=== PATIENT | male | born 1980 | race Two or more races ===

== ENCOUNTER 2020-12-17 14:52 | Outpatient (REF) | payer MEDICAID, SELFPAY ==
--- NOTE | ~2020-12-17 | XR_ITS ---
EXAMINATION: XR LUMBOSACRAL SPINE WITH OBLIQUES CLINICAL INFORMATION: Pain COMPARISON: 11/10/2016 TECHNIQUE: AP, both oblique, and lateral views of the lumbar spine. Lateral view of the lumbosacral junction. FINDINGS: No fracture or subluxation. Vertebral body height and alignment is maintained. Mild disc space narrowing of L5-S1. Small multilevel endplate osteophytes with mild facet arthropathy. The sacroiliac joints are symmetric. The sacrum is intact. Nonobstructive bowel gas pattern. XR/XR lumbar spine 4V min IMPRESSION: Mild degenerative changes of the lumbar spine.
--- NOTE | ~2020-12-17 | XR_ITS ---
EXAMINATION: XR ANKLE, RIGHT XR ANKLE, LEFT CLINICAL INFORMATION: Pain COMPARISON: 11/10/2016 TECHNIQUE: 3 views of each ankle. FINDINGS: Right ankle: No fracture or subluxation. Ankle mortise is congruent. Mild degenerative change along the ankle mortise with osteophytes noted. Diffuse soft tissue swelling. No ankle joint effusion. Small plantar heel spur. Mild degenerative change of the midfoot with osteophyte formation. Left ankle: No fracture or dislocation. The ankle mortise is congruent. Mild degenerative change along the mortise with osteophyte formation. Corticated ossification at the tip of the medial malleolus. Diffuse soft tissue swelling. No ankle joint effusion. Small plantar heel spur. Mild degenerative change of the midfoot with osteophytes noted. XR/XR ankle LT min 3V IMPRESSION: Mild degenerative changes throughout both ankles. Soft tissue swelling.
--- NOTE | ~2020-12-17 | XR_ITS ---
EXAMINATION: XR ANKLE, RIGHT XR ANKLE, LEFT CLINICAL INFORMATION: Pain COMPARISON: 11/10/2016 TECHNIQUE: 3 views of each ankle. FINDINGS: Right ankle: No fracture or subluxation. Ankle mortise is congruent. Mild degenerative change along the ankle mortise with osteophytes noted. Diffuse soft tissue swelling. No ankle joint effusion. Small plantar heel spur. Mild degenerative change of the midfoot with osteophyte formation. Left ankle: No fracture or dislocation. The ankle mortise is congruent. Mild degenerative change along the mortise with osteophyte formation. Corticated ossification at the tip of the medial malleolus. Diffuse soft tissue swelling. No ankle joint effusion. Small plantar heel spur. Mild degenerative change of the midfoot with osteophytes noted. XR/XR ankle RT min 3V IMPRESSION: Mild degenerative changes throughout both ankles. Soft tissue swelling.
--- NOTE | ~2020-12-17 | XR_ITS ---
EXAMINATION: XR KNEE, LEFT XR KNEE, RIGHT CLINICAL INFORMATION: Knee pain COMPARISON: 11/10/2016 TECHNIQUE: 4 views of each knee FINDINGS: Left knee: No fracture or subluxation. Compartmental joint spaces are maintained. No joint effusion. Diffuse soft tissue swelling. Right knee: No fracture or subluxation. Small tricompartmental marginal osteophytes. No joint effusion. Diffuse soft tissue swelling. XR/XR knee LT 4V IMPRESSION: Soft tissue swelling throughout both knees. Mild tricompartmental degenerative change of the right knee.
--- NOTE | ~2020-12-17 | XR_ITS ---
EXAMINATION: XR KNEE, LEFT XR KNEE, RIGHT CLINICAL INFORMATION: Knee pain COMPARISON: 11/10/2016 TECHNIQUE: 4 views of each knee FINDINGS: Left knee: No fracture or subluxation. Compartmental joint spaces are maintained. No joint effusion. Diffuse soft tissue swelling. Right knee: No fracture or subluxation. Small tricompartmental marginal osteophytes. No joint effusion. Diffuse soft tissue swelling. XR/XR knee RT 4V IMPRESSION: Soft tissue swelling throughout both knees. Mild tricompartmental degenerative change of the right knee.
== END 2020-12-17 14:53 | disposition home or self-care (01) ==
LOC: HO.XRAY 14:52
PROVIDERS: PCP Internal Medicine Geriatric Medicine; Visit Provider Internal Medicine Geriatric Medicine
DX: M25.561 Pain in right knee (principal); M25.562 Pain in left knee; M25.571 Pain in right ankle and joints of right foot; M25.572 Pain in left ankle and joints of left foot; M54.50 Low back pain, unspecified
CPT/HCPCS: 72110; 73564; 73610

== ENCOUNTER 2022-03-18 11:21 | Emergency (ER) | payer MEDICAID, SELFPAY ==
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
[2022-03-18 11:22] VITALS: BP 158/92; PULSE 86; RESP 18; TEMP 35.6; O2SAT 99; BMI 46.8
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
--- NOTE | 2022-03-18 11:25 | ECG_ITS ---
Test Reason : CHEST PAIN Blood Pressure : / mmHG Vent. Rate : 102 BPM Atrial Rate : 000 BPM P-R Int : 000 ms QRS Dur : 092 ms QT Int : 338 ms P-R-T Axes : 000 007 -75 degrees QTc Int : 440 ms Atrial fibrillation with rapid ventricular response Incomplete right bundle branch block Inferior infarct , age undetermined Cannot rule out Anterior infarct , age undetermined Abnormal ECG No previous ECGs available Referred By: Lindsay Solis Electronically Signed By:DANIEL WOODRUFF
[2022-03-18 11:58] LABS: MANUAL DIFF FLAG NO
[2022-03-18 12:00] VITALS: RESP 18
[2022-03-18 12:00] LABS: Basophils Absolute Auto 0.1 X10*3/uL (0.0-0.2); Basophils Percent Auto 0.5 % (0-2); Eosinophils Absolute Auto 0.1 X10*3/uL (0.0-0.4); Eosinophils Percent Auto 1.1 % (0-4); Hematocrit 44.4 % (42.0-52.0); Imm Gran Abs Auto 0.04 X10*3/uL (0.00-0.03); Imm Gran Pct Auto 0.4 % (0.0-0.4); Lymphocytes Absolute Auto 2.1 X10*3/uL (1.2-4.9); Mean Corpuscular HGB Conc 31.5 g/dl (31.0-36.0); Mean Corpuscular Volume 82.4 fL (80.0-98.0); Monocytes Absolute Auto 0.8 X10*3/uL (0.1-1.2); Neutrophils Absolute Auto 6.5 x10*3/uL (2.0-8.3); Platelet Count 190 X10*3/uL (160-400); Red Blood Count 5.39 X10*6/uL (4.60-5.80); Red Cell Distribution Width 16.7 % (11.0-16.0); White Blood Count 9.6 X10*3/uL (4.8-10.8)
[2022-03-18 12:16] LABS: Alanine Aminotransferase 14 U/L (0-40); Albumin Level 3.5 g/dL (3.5-5.0); Alkaline Phosphatase 86 U/L (39-117); Anion Gap 14 (12-20); Aspartate Amino Transferase 22 U/L (5-37); Bilirubin Total 0.9 mg/dL (0.0-1.0); Blood Urea Nitrogen 11 mg/dL (9-16); Calcium 9.2 mg/dL (8.4-10.2); Carbon Dioxide 29 mmol/L (22-29); Chloride 98 mmol/L (96-108); Creatinine Clr Calc Pharmacy 188.1; Estimated Glomerular Filt Rate > 60; Glucose Random 193 mg/dL (60-115); Magnesium 1.9 mg/dL (1.6-2.6); Potassium 4.1 mmol/L (3.3-5.1); Sodium 137 mmol/L (135-145); Total Protein 8.1 g/dL (6.5-8.0)
[2022-03-18 12:21] LABS: B Type Natriuretic Peptide 139 pg/mL (<100)
[2022-03-18 12:23] LABS: Troponin-I High Sensitivity 8.1 ng/L (<3.5-35.0)
[2022-03-18 12:39] LABS: Influenza A PCR NEGATIVE (Negative); Influenza B PCR NEGATIVE (Negative); Resp Syncy Virus RNA Qual PCR NEGATIVE (Negative); SARS COV2 PCR INHOUSE NEGATIVE (Negative)
[2022-03-18 14:00] VITALS: PULSE 75; RESP 16; O2SAT 95
[2022-03-18 14:16] VITALS: BP 120/66; BP 121/61; PULSE 65; PULSE 69
[2022-03-18 14:17] VITALS: BP 115/53; PULSE 69
[2022-03-18 15:01] LABS: Troponin-I High Sensitivity 8.2 ng/L (<3.5-35.0)
[2022-03-18 16:00] VITALS: PULSE 72; RESP 18; O2SAT 95
== END 2022-03-18 17:15 | disposition home or self-care (01) ==
PROVIDERS: Physician Assistant Medical; Emergency Provider Student in an Organized Health Care Education/Training Program; PCP Internal Medicine Geriatric Medicine
DX: R07.89 Other chest pain (principal); R60.0 Localized edema; Z95.810 Presence of automatic (implantable) cardiac defibrillator; Z20.822 Contact with and (suspected) exposure to COVID-19; Z20.828 Contact with and (suspected) exposure to other viral communicable diseases
CPT/HCPCS: 0241U; 36415; 71046; 80053; 83735; 83880; 84484; 85025; 93005; 99283; 99285

== ENCOUNTER 2023-02-02 16:35 | Emergency (ER) | payer MEDICAID, SELFPAY ==
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
[2023-02-02 17:56] VITALS: BP 143/83; PULSE 102; RESP 20; TEMP 36.5; O2SAT 97; BMI 46.2
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
--- NOTE | 2023-02-02 19:22 | MHC.EDTECH ---
Called patient in at 192 patient then asked how long of a wait. I told the patient I was not sure a estimated time. Patient then stated he had kids at home and could not wait and said he was going to follow up with his primary care doctor to get the results.
== END 2023-02-02 20:51 | disposition left against medical advice (07) ==
PROVIDERS: Emergency Provider Emergency Medicine; PCP Internal Medicine Geriatric Medicine
DX: S39.92XA Unspecified injury of lower back, initial encounter (principal); S09.90XA Unspecified injury of head, initial encounter; M54.2 Cervicalgia; R51.9 Headache, unspecified; M54.6 Pain in thoracic spine; V43.52XA Car driver injured in collision with other type car in traffic accident, initial encounter; Y93.9 Activity, unspecified; Y92.410 Unspecified street and highway as the place of occurrence of the external cause; Y99.9 Unspecified external cause status
CPT/HCPCS: 70450; 72072; 72125; 99281; 99284

== ENCOUNTER 2023-02-06 23:59 | Outpatient (BNV) | payer MEDICAID, SELFPAY | END 2023-02-07 23:59 | PROVIDERS: PCP Internal Medicine Geriatric Medicine; Visit Provider Internal Medicine | DX: I42.9 Cardiomyopathy, unspecified (principal); I48.20 Chronic atrial fibrillation, unspecified; I10 Essential (primary) hypertension; E78.5 Hyperlipidemia, unspecified | CPT/HCPCS: 99223 ==

== ENCOUNTER 2023-03-20 15:16 | Outpatient (REF) | payer MEDICAID, SELFPAY ==
--- NOTE | ~2023-03-20 | XR_ITS ---
EXAMINATION: XR ANKLE, LEFT CLINICAL INFORMATION: Left ankle pain lateral malleolus plus edema following fall last week. COMPARISON: None available. TECHNIQUE: AP, lateral, and mortise views of the left ankle. FINDINGS: Ankle mortise and subtalar joints are normal. There is a small calcaneal heel and lateral malleolar enthesophyte. Also visualized is dorsal intertarsal spurring. There is no visible acute fracture, dislocation or subluxation seen. XR/XR ankle LT min 3V IMPRESSION: There is a calcaneal heel, lateral malleolar and dorsal intertarsal spurring. No acute fracture or dislocation seen.
== END 2023-03-20 15:17 | disposition home or self-care (01) ==
LOC: HO.HHCX 15:16
PROVIDERS: Visit Provider Emergency Medicine
DX: M25.572 Pain in left ankle and joints of left foot (principal)
CPT/HCPCS: 73610

== ENCOUNTER 2023-04-12 14:40 | Outpatient (REF) | payer MEDICAID, SELFPAY ==
[2023-04-12 16:02] LABS: MANUAL DIFF FLAG NO
[2023-04-12 16:14] LABS: Basophils Percent Auto 0.3 % (0-2); Eosinophils Absolute Auto 0.1 X10*3/uL (0.0-0.4); Eosinophils Percent Auto 0.6 % (0-4); Hematocrit 50.4 % (42.0-52.0); Imm Gran Abs Auto 0.04 X10*3/uL (0.00-0.03); Imm Gran Pct Auto 0.3 % (0.0-0.4); Lymphocytes Absolute Auto 2.8 X10*3/uL (1.2-4.9); Lymphocytes Percent Auto 23.3 % (20-40); Mean Corpuscular HGB Conc 31.7 g/dl (31.0-36.0); Mean Corpuscular Hemoglobin 28.4 pg (27.0-33.0); Mean Corpuscular Volume 89.5 fL (80.0-98.0); Mean Platelet Volume 12.2 fL (9.4-12.4); Monocytes Absolute Auto 0.7 X10*3/uL (0.1-1.2); Monocytes Percent Auto 5.6 % (2-11); Neutrophils Absolute Auto 8.3 x10*3/uL (2.0-8.3); Neutrophils Percent Auto 69.9 % (45-73); Platelet Count 185 X10*3/uL (160-400); Red Blood Count 5.63 X10*6/uL (4.60-5.80)
[2023-04-12 17:24] LABS: Anion Gap 15 (12-20); Blood Urea Nitrogen 10 mg/dL (9-16); Calcium 9.5 mg/dL (8.4-10.2); Carbon Dioxide 28 mmol/L (22-29); Chloride 106 mmol/L (96-108); Estimated Glomerular Filt Rate > 60; Glucose Random 182 mg/dL (60-115); Potassium 4.2 mmol/L (3.3-5.1); Sodium 145 mmol/L (135-145)
== END 2023-04-12 14:41 | disposition home or self-care (01) ==
LOC: HO.HHCL 14:40
PROVIDERS: PCP Internal Medicine Geriatric Medicine; Visit Provider Internal Medicine Geriatric Medicine
DX: E11.42 Type 2 diabetes mellitus with diabetic polyneuropathy (principal); I48.91 Unspecified atrial fibrillation; Z79.4 Long term (current) use of insulin
CPT/HCPCS: 36415; 80048; 85025

== ENCOUNTER 2024-03-12 10:13 | Outpatient (REF) | payer MEDICAID, SELFPAY ==
[2024-03-12 11:25] LABS: MANUAL DIFF FLAG NO
[2024-03-12 11:31] LABS: Basophils Percent Auto 0.2 % (0-2); Eosinophils Absolute Auto 0.1 X10*3/uL (0.0-0.4); Eosinophils Percent Auto 0.5 % (0-4); Hematocrit 49.8 % (42.0-52.0); Hemoglobin 15.7 g/dl (14.0-18.0); Imm Gran Abs Auto 0.04 X10*3/uL (0.00-0.03); Imm Gran Pct Auto 0.4 % (0.0-0.4); Lymphocytes Absolute Auto 1.9 X10*3/uL (1.2-4.9); Lymphocytes Percent Auto 20.2 % (20-40); Mean Corpuscular HGB Conc 31.5 g/dl (31.0-36.0); Mean Corpuscular Hemoglobin 28.9 pg (27.0-33.0); Mean Corpuscular Volume 91.5 fL (80.0-98.0); Mean Platelet Volume 12.3 fL (9.4-12.4); Monocytes Absolute Auto 0.6 X10*3/uL (0.1-1.2); Monocytes Percent Auto 6.4 % (2-11); Neutrophils Absolute Auto 6.8 x10*3/uL (2.0-8.3); Neutrophils Percent Auto 72.3 % (45-73); Platelet Count 148 X10*3/uL (160-400); Red Blood Count 5.44 X10*6/uL (4.60-5.80); Red Cell Distribution Width 14.1 % (11.0-16.0); White Blood Count 9.5 X10*3/uL (4.8-10.8)
[2024-03-12 11:39] LABS: Estimated Average Glucose 157 mg/dL; Hemoglobin A1c % 7.1 % (<6.0); Total Hemoglobin (HGBA1C) 3975.5291 umol/L
[2024-03-12 12:04] LABS: Alanine Aminotransferase 19 U/L (0-40); Albumin Level 4.1 g/dL (3.5-5.0); Alkaline Phosphatase 68 U/L (39-117); Anion Gap 12 (12-20); Aspartate Amino Transferase 25 U/L (5-37); Bilirubin Total 0.6 mg/dL (0.0-1.0); Blood Urea Nitrogen 10 mg/dL (9-16); Calcium 8.8 mg/dL (8.4-10.2); Carbon Dioxide 28 mmol/L (22-29); Chloride 108 mmol/L (96-108); Cholesterol 152 mg/dL (<200); Estimated Glomerular Filt Rate > 60; Glucose Random 166 mg/dL (60-115); HDL Cholesterol 27 mg/dL (>40); LDL Cholesterol Calculated 105 mg/dL (<100); Potassium 4.8 mmol/L (3.3-5.1); Sodium 143 mmol/L (135-145); Total Protein 7.7 g/dL (6.5-8.0); Triglycerides 101 mg/dL (<150)
== END 2024-03-12 10:14 | disposition home or self-care (01) ==
LOC: HO.HHCL 10:13
PROVIDERS: Visit Provider Internal Medicine Geriatric Medicine
DX: I50.22 Chronic systolic (congestive) heart failure (principal); I48.20 Chronic atrial fibrillation, unspecified; M54.40 Lumbago with sciatica, unspecified side; G89.29 Other chronic pain; Z72.0 Tobacco use; E11.42 Type 2 diabetes mellitus with diabetic polyneuropathy; Z79.4 Long term (current) use of insulin
CPT/HCPCS: 36415; 80053; 80061; 83036; 85025

== ENCOUNTER → 2024-03-15 08:55 | Outpatient (REF) | payer MEDICAID, SELFPAY ==
--- NOTE | 2024-03-15 08:58 | CA_ITS ---
Transthoracic Echocardiogram Patient (Last, First, Middle): Hesham Zepeda, Gender: Male Date of : 1980 Age: 43 Procedure Date: 03/15/2024 Procedure Type: Transthoracic Echocardiogram Location: OP Height: 187.96 cm Weight: 156.95 kg BSA: 2.74 m2 Heart Rate: bpm BP: 130 / 82 mmHg Journeyman Electrician: ELIZABETH Referring MD: Edmundo Smith MD Bow Stapler: Michael Cervantes MD Symptoms: CHRONIC SYSTOLIC HF I50.22 NON ISCHEMIC RECOVERED EF Study Quality: Adequate ECG Rhythm: Atrial Fibrillation Conclusions: - 1. Moderately reduced LV ejection fraction of 35-40% with upper limits of normal wall thickness 2. Moderately dilated left atrium 3. Cardiac valvular Dopplers within normal limits with mild mitral annular calcification 4. Normal RV systolic pressure 5. Upper limits of normal ascending aortic size 6. No gross pericardial effusion Findings Left Ventricle Normal left ventricular cavity size. There is normal left ventricular wall thickness. The left ventricular systolic function is moderately decreased. The visually estimated ejection fraction is between 35-40%. Diastolic function is indeterminate on the basis of available data. Right Ventricle Normal right ventricular cavity size. There is borderline right ventricular systolic function. Atria The left atrium is moderately dilated. There is no evidence of interatrial shunt. The right atrium is mildly dilated. Aortic Valve The aortic valve was not well visualized. There is no aortic valve stenosis. There is no aortic valve regurgitation. Mitral Valve Normal mitral valve structure and function. There is mild mitral annular calcification. There is trace mitral valve regurgitation. There is no mitral valve stenosis. Pulmonic Valve The pulmonic valve was not well visualized. Tricuspid Valve Likely normal tricuspid valve structure and function. There is mild tricuspid valve regurgitation. The right ventricular systolic pressure is normal. The right ventricular systolic pressure is 28 mmHg. Normal right atrial pressure. There is no evidence of pulmonary hypertension. Great Vessels The pulmonary artery was not well visualized. There is no dilatation of the ascending aorta measuring 3.50 cm. Venous The inferior vena cava is normal in size and collapses greater than 50% with inspiration. Pericardium/Pleural There is no evidence of pericardial effusion. Prior Study Comparison No prior study available for comparison. Measurements 2D Linear Measurements IVSd: 1.17 0.6-0.9/0.6-1.0 cm LVIDd: 5.52 3.9-5.3/4.2-5.9 cm LVIDd Index: 2.01 2.4-3.2/2.2-3.1 cm/m2 LVIDs: 4.58 2.0-3.6 cm LVPWd: 1.14 0.7-1.1 cm Ao Root: 3.80 2.1-3.5 cm LA Diam: 4.30 2.7-3.8/3.0-4.0 cm LAIDs Index: 1.57 1.5-2.3 cm/m2 LV Mass: 324.33 67-162/88-224 g LV Mass Index: 118.37 43-95/49-115 g/m2 LVOT Diam: 2.50 3.0+(-)1.3 cm 2D Systolic Function EF 4C: 36.70 >55% EF 2C: 35.20 >55% EF BiP: 37.10 >55% Mitral Valve MV Pk E: 0.95 MV Decel Time: 116.00 E'Lateral: 12.50 E'Medial: 8.05 E/E' Med: 11.80 E/E' Lat: 7.60 PHT: 34.00 MVA PHT: 6.47 Decel Simpson: 8.19 Aortic Valve AoV Pk Roger: 1.77 AoV Mn Roger: 0.98 AoV VTI: 0.31 AoV Pk Grad: 13.00 Aov Mn Grad: 5.00 LITO Cont.VTI: 2.42 LVOT LVOT Pk Roger: 0.81 LVOT Mn Roger: 0.57 LVOT VTI: 0.16 LVOT Pk Grad: 3.00 LVOT Mn Grad: 2.00 LVOT Diam: 2.50 LVOT Area: 4.91 Diastolic Function MV Pk E: 0.95 E'Medial: 8.05 E/E' Med: 11.80 E' Laterial: 12.50 E/E' Lat: 7.60 Right Ventricle TAPSE (mm): 25.00 TVS' Roger: 12.00 Tricuspid Valve TR Pk Roger: 2.25 TR Pk Grad: 20.00 RA Press: 8.00 RVSP: 28.00 Great Vessels Aorta Ao Root-2D: 3.80 2.0-3.7 cm Ao Asc: 3.50 2.1-3.4 cm Pulmonary Valve PV Pk Roger: 0.98 Peak PV Grad: 4.00 Updated in Other Vendor System with Status of Final Michael Cervantes MD electronically signed on 03/15/2024 1:36:50 PM with status of Final
--- OUTSIDE RECORDS SUMMARY | 2024-03-15 09:18 | XMS_ITS | Encounter Summary ---
Author Organization [employer] Address [address] [place] [address] 7[address] [place] [address] Care Team Providers Care Fitness Specialist Name Role Phone Name, Edmundo ANDREWS Primary Care Provider [phone] Encounter Details Date Type Department Care Team ([facility] st Contact Info) Description 09/23/2022 Abstract [facility] MEDICINE [address] [place] [address] Name, MD Edmundo [address] [place] [address] Social History Tobacco Use Types Packs/Day Years Used Date Smoking Tobacco: Every Day Cigarettes Smokeless Tobacco: Never Alcohol Use Standard Drinks/Week Comments Not Currently 0 (1 standard drink = 0.6 oz pur e alcohol) Depression Answer Date Recorded Patient Health Questionnaire-2 Score 0 03/16/2022 Sex and Gender Information Value Date Recorded Sex Assigned at Male 12/20/2021 10:16 AM EDT Legal Sex Male 10:16 AM EDT Gender Identity Male 12/20/2021 10:16 AM EDT Sexual Orientation Straight 12/20/2021 10 :16 AM EDT documented as of this encounter Plan of Treatment Not on file documented as of this encounter Visit Diagnoses Not on filedocumented in this encounter Care Teams Fitness Specialist Relationship Specialty Start Date End Date Name, MD Edmundo [address] [place] [address] PCP - General Family Medicine 06/10/15 Jeremiah Alejo Electric Range PreparerSubscription Crew Leader 04/28/23 documented as of this encounter
--- OUTSIDE RECORDS SUMMARY | 2024-03-15 09:18 | XMS_ITS | Encounter Summary ---
Author Organization [employer] Address [address] [place] [address] [address]t [place] [address] Care Team Providers Care Back End Architect Name Role Phone Name, Edmundo ANDREWS Primary Care Provider [phone] Encounter Details Date Type Department Care Team ([facility] st Contact Info) Description 09/23/2022 Abstract [facility] MEDICINE [address] [place] [address] Name, MD Edmundo [address] [place] [address] Social History Tobacco Use Types Packs/Day Years [...] on filedocumented in this encounter Care Teams Back End Architect Relationship Specialty Start Date End Date Name, MD Edmundo [address] [place] [address] PCP - General Family Medicine 06/10/15 Jeremiah Alejo Dinkey Engine Firer/FiremanMens Locker Room Attendant 04/28/23 documented as of this encounter
--- OUTSIDE RECORDS SUMMARY | 2024-03-15 09:18 | XMS_ITS | Encounter Summary ---
Author Organization [employer] Address [address] [facility] 7t [place] [address] Care Team Providers Care Care Transitions Manager Name Role Phone Name, Edmundo ANDREWS Primary Care Provider [phone] Reason for Visit * Reason Comments Med Refill Encounter Details Date Type Department Care Team ([facility] Contact Info) Description 08/11/2023 Refill [facility] MEDICINE [address] [place] [address] Name, MD Edmundo [address] [place] [address] Diabetic polyneuropathy associated with type 2 diabetes mellitus (CMS/HCC) Social History Tobacco Use Types Packs/Day Years Used Date Smoking Tobacco: Every Day Cigarettes Smokeless Tobacco: Never Alcohol Use Standard Drinks/Week Comments Not Currently 0 (1 standard drink = 0.6 oz pur e alcohol) Depression Answer Date Recorded Patient Health Questionnaire-9 Score 0 05/23/2023 Patient Health Questionnaire-9 Score 0 05/23/2023 Last PHQ-9: Questionnaire Data Not on file 0 05/23/2023 Housing Stability Answer Date Recorded What is your housing situation today? I do not have housing (Staying with others, in a hotel, in a residential, living outside on the street, on a beach, in a car, or in a park 05/23/[address] you li ve. Do you have problems with any of the following? None of the above 05/23/2023 Food Insecurity Answer Date Recorded Within the past 12 months, y ou worried that your food would run out before you got money to buy more: Never True 05/23/2023 Within the past 12 months,th e food you bought just didn't last and you didn't have enough money to get more: Never True 03/2023 Transportation Answer Date Recorded In the past 12 months, has l ack of transportation kept you from medical appts, meetings, work or from getting things needed for daily living? No 05/23/2023 Utilities Answer Date Recorded In the past 12 months, has t he electric, gas, oil or water company threatened to shut off services in your home? No 05/23/2023 Depression Answer Date Recorded Patient Health Questionnaire-2 Score 0 05/23/2023 Sex and Gender Information Value Date Recorded Sex Assigned at Male 12/20/2021 10:16 AM EDT Legal Sex Male 10:16 AM EDT Gender Identity Male 12/20/2021 10:16 AM EDT Sexual Orientation Straight 12/20/2021 10 :16 AM EDT documented as of this encounter Plan of Treatment Not on file documented as of this encounter Visit Diagnoses Diagnosis Diabetic polyneuropathy associated with type 2 diabetes mellitus (CMS/HCC) documented in this encounter Additional Health Concerns Assessment Noted Time PHQ-9 Depression Total Score: 0 05/23/19 3:48 PM EDT documented as of this encounter Care Teams Care Transitions Manager Relationship Specialty Start Date End Date Name, MD Edmundo [address] [place] [address] PCP - General Family Medicine 06/10/15 Jeremiah Alejo Surface Plate InspectorManager Supply Chain 04/28/23 documented as of this encounter
--- OUTSIDE RECORDS SUMMARY | 2024-03-15 09:18 | XMS_ITS | Encounter Summary ---
Author Organization [employer] Address [address] [facility] 7t [place] [address] Care Team Providers Care Bank Appraiser Name Role Phone Name, Edmundo ANDREWS Primary Care Provider [phone] Reason for Visit * Reason Onset Date Comments Nurse Triage 02/12/2024 Encounter Details Date Type Department Care Team ([facility] Contact Info) Description 02/12/2024 Telephone [facility] MEDICINE [address] [place] [address] Name, MD Edmundo [address] [place] [address] Nurse Triage Social History Tobacco Use Types Packs/Day Years Used Date Smoking Tobacco: Every Day Cigarettes Passive Smoke Exposure: Current Smokeless Tobacco: Never Alcohol Use Standard Drinks/Week [...] with others, in a hotel, in a care home, living outside on the street, on a [...] AM EDT documented as of this encounter Miscellaneous Notes * Telephone Encounter - Angie Jefferson RN - 02/12/2024 9:29 AM EST Triage call Pt is very concerned about pain medication and prescription is needing to be refilled. 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 Pt has taken last pain med today. Pt is advised prescription is written and will be refilled 02/13/24 and to be at [facility] pharmacy before 1pm. Advised thatthis request will be sent to PCP and nursing team for follow up prn. Pt ended call. Protocol Used: Medication Question Call (Adult) Protocol-Based Disposition: Discuss with PCP and Callback by Nurse within 1 Hour Video visit not offered Positive Triage Question: * Caller has URGENT medicine question about med that PCP or specialist prescribed and triager unable to answer question * All higher-acuity triage questions were negative Care Advice Discussed: * Reasons To Call Back - You have any more questions - You become worse * Telephone Encounter - Tesha Ovidio - 02/12/2024 9:05 AM EST Symptom: Back Pain - Not From Injury Outcome: Schedule an appointment to be seen within 3 days Reason: Caller denied all higher acuity questions The caller accepted this outcome. Contact pt at [phone] documented in this encounter Plan of Treatment Not on file documented as of this encounter Visit Diagnoses Not on filedocumented in this encounter Additional Health Concerns Assessment Noted Time PHQ-9 Depression Total Score: 0 05/23/19 3:48 PM EDT documented as of this encounter Care Teams Bank Appraiser Relationship Specialty Start Date End Date Name, MD Edmundo [address] [place] [address] PCP - General Family Medicine 06/10/15 Jeremiah Alejo Trust ManagerEstate Administrator 04/28/23 documented as of this encounter
--- OUTSIDE RECORDS SUMMARY | 2024-03-15 09:18 | XMS_ITS | Encounter Summary ---
Author Organization [employer] Address [address] [facility] 7t [place] [address] Care Team Providers Care Battery Container Tester Aluminum Name Role Phone Name, Edmundo ANDREWS Primary Care Provider [phone] Encounter Details Date Type Department Care Team ([facility] Contact Info) Description 04/29/2022 Telephone [facility] MEDICINE [address] [place] [phone] Name, MD Edmundo [address] [place] [address] Social History Tobacco Use Types Packs/Day Years Used Date Smoking Tobacco: Every Day Cigarettes Smokeless Tobacco: Never Depression Answer Date Recorded Patient Health Questionnaire-2 Score 0 03/16/2022 Sex and Gender Information Value Date Recorded Sex Assigned at Male 12/20/2021 10:16 AM EDT Legal Sex Male 10:16 AM EDT Gender Identity Male 12/20/2021 10:16 AM EDT Sexual Orientation Straight 12/20/2021 10 :16 AM EDT COVID-19 Exposure Response Date Recorded In the last 10 days, have yo u been in contact with someone who was confirmed or suspected to have Coronavirus/COVID-19? No / Unsure 04/20/2022 10:54 AM EST documented as of this encounter Plan of Treatment Not on file documented as of this encounter Visit Diagnoses Not on filedocumented in this encounter Care Teams Battery Container Tester Aluminum Relationship Specialty Start Date End Date Name, MD Edmundo [address] [place] [address] PCP - General Family Medicine 06/10/15 Jeremiah Alejo MercerizerPipe Line Inspector 04/28/23 documented as of this encounter
--- OUTSIDE RECORDS SUMMARY | 2024-03-15 09:18 | XMS_ITS | Encounter Summary ---
Author Organization [employer] Address [address] 7[address] [place] [address] Care Team Providers Care Soft Boarder Name Role Phone Name, Edmundo ANDREWS Primary Care Provider [phone] Encounter Details Date Type Department Care Team ([facility] Contact Info) Description 03/13/2024 Telephone [facility] MEDICINE [address] [place] [address] Gregoria Alvarez, RN [address] [place] [address] Social History Tobacco Use Types Packs/Day Years Used Date Smoking Tobacco: Every Day Cigarettes Passive Smoke Exposure: Current Smokeless Tobacco: Never Alcohol Use Standard Drinks/Week Comments Not Currently 0 (1 standard drink = 0.6 oz pur e alcohol) Depression Answer Date Recorded Patient Health Questionnaire-9 Score 10 03/12/2024 Patient Health Questionnaire-9 Score 10 03/12/2024 Last PHQ-9: Questionnaire Data Not on file 0 03/12/2024 Housing Stability Answer Date Recorded What is your housing situation today? I do not have housing (Staying with others, in a hotel, in a fdc, living outside on the street, on a [...] Answer Date Recorded Patient Health Questionnaire-2 Score 2 03/12/2024 Sex and Gender Information Value Date Recorded Sex Assigned at Male 12/20/2021 10:16 AM EDT Legal Sex Male 10:16 AM EDT Gender Identity Male 12/20/2021 10:16 AM EDT Sexual Orientation Straight 12/20/2021 10 :16 AM EDT documented as of this encounter Miscellaneous Notes * Telephone Encounter - Gregoria Alvarez RN - 03/13/2024 4:05 PM EST PCP reviewed bedside US done at [facility]. PCP recommends that pt still have TTE completed at [facility] as bedside US did not show EF. T/C to [facility] Cardiology. No answer, v/m left advising of pcp recommendation. T/C to pt. Advised of PCP recommendation. Pt verbalized understanding. * Telephone Encounter - Edmundo Smith MD - 03/13/2024 3:39 PM EST Can you get me the result of the bedside ECHO done at [facility]. If it is a good quality test then I am ok with that, if not then I will want him to have the TTE at [facility] * Telephone Encounter - Gregoria Alvarez RN - 03/13/2024 2:54 PM EST Pt evaluated in [facility] ED 03/12/23 Dx: Afib with RVR, dizziness. T/C to [facility] pharmacy. Miroslava confirms that pt last picked up Metoprolol on 01/22/24 with a 90 day supply. T/C to pt for status check. Pt states that he is alright. Denies chest pain. No other symptoms reported. Pt states he received a call from [facility] asking if PCP will accept bedside US done at [facility] or if pt should still be scheduled for TTE. Advised will send request to pcp for review. documented in this encounter Plan of Treatment Not on file documented as of this encounter Visit Diagnoses Not on filedocumented in this encounter Additional Health Concerns Assessment Noted Time PHQ-9 Depression Total Score: 10 025 11:02 AM EST documented as of this encounter Care Teams Soft Boarder Relationship Specialty Start Date End Date Name, MD Edmundo [address] [place] [address] PCP - General Family Medicine 06/10/15 Jeremiah Alejo Meal CookPark Worker Supervisor 04/28/23 documented as of this encounter
--- OUTSIDE RECORDS SUMMARY | 2024-03-15 09:18 | XMS_ITS | Encounter Summary ---
Author Organization [employer] Address [address] [facility] 7t [place] [address] Care Team Providers Care Electric Meter Tester Shop Name Role Phone Name, Edmundo ANDREWS Primary Care Provider [phone] Encounter Details Date Type Department Care Team ([facility] Contact Info) Description 04/29/2022 Telephone [facility] MEDICINE [address] [place] [phone] Name, MD Edmundo [address] [place] [address] Social History Tobacco Use Types Packs/Day Years [...] on filedocumented in this encounter Care Teams Electric Meter Tester Shop Relationship Specialty Start Date End Date Name, MD Edmundo [address] [place] [address] PCP - General Family Medicine 06/10/15 Jeremiah Alejo Boat WrapperAgriculture Technician 04/28/23 documented as of this encounter
--- OUTSIDE RECORDS SUMMARY | 2024-03-15 09:18 | XMS_ITS | Encounter Summary ---
Author Organization [employer] Address [address] [place] [address] Care Team Providers Care Nurse Informaticist Name Role Phone Name, Edmundo ANDREWS Primary Care Provider [phone] Reason for Visit * Reason Onset Date Comments Call Back Request 08/07/2023 Encounter Details Date Type Department Care Team ([facility] Contact Info) Description 08/07/2023 Telephone [facility] MEDICINE [address] [place] [address] Name, MD Edmundo [address] [place] [address] Call Back Request Social History Tobacco Use Types Packs/Day Years [...] with others, in a hotel, in a intermediate, living outside on the street, on a [...] encounter Miscellaneous Notes * Telephone Encounter - Roseanne Hayden RN - 08/07/2023 11:18 AM EDT Telephone call to patient, patient stating he needs pain medications now as he has been moving and fell and is in pain. Does not want an appointment with any provider, I've been taking pain medications for 20 year I don't need an appoint I just wants my medications. Patient stating he called in to request a refill but we are closed Monday, advised patient to call pharmacy to bean picker medications a day early if needed. Patient stated the pharmacy is closed on Monday and wants his pain medication. Advised patient I would send message to PCP. * Telephone Encounter - Myriam Sims - 08/07/2023 9:43 AM EDT Tc from pt requesting a call back from a nurse. Pt did not disclose any information. Please contact pt at [phone] documented in this encounter Plan of Treatment Not on file documented as of this encounter Visit Diagnoses Not on filedocumented in this encounter Additional Health Concerns Assessment Noted Time PHQ-9 Depression Total Score: 0 05/23/19 3:48 PM EDT documented as of this encounter Care Teams Nurse Informaticist Relationship Specialty Start Date End Date Name, MD Edmundo [address] [place] [address] PCP - General Family Medicine 06/10/15 Jeremiah Alejo Certified Registered Nurse PractitionerButadiene Converter Operator 04/28/23 documented as of this encounter
--- OUTSIDE RECORDS SUMMARY | 2024-03-15 09:18 | XMS_ITS | Clinical Summary ---
Author Organization [employer] Address [address] [facility] [address] [place] [address] Care Team Providers Care Hardware Developer Name Role Phone Name, Edmundo ANDREWS Primary Care Provider [phone] Allergies Active Allergy Reactions Criticality Noted Date Comments Amiodarone Anaphylaxis High 04/20/2022 Pt stated this rxn occurred - total body paralysis, at [facility] February 2022 Amoxicillin 12/20/2017 Amoxicillin-Pot Clavulanate 03/04/2020 tolerates piperacillin/tazobactam 04/2018 Aspirin 11/08/2005 swelling Ibuprofen 03/10/2022 patient had anaphylactic reation to ibuprofen Medications naloxone (Narcan) 4 mg/0.1 mL nasal spray Administer 0.1 mL into affected nostril(s). Given in 1 nostril and may repeat dose every 2-3 minutes as needed alternating nostrils with each dose. 022 Active Insulin Syringe-Needle U-100 (Advocate Insulin Syringe) 30G X 5/16 0.3 ML misc Active Alcohol Swabs (Alcohol Prep) pads Active Blood Glucose Monitoring Suppl (FreeStyle Lite) w/Device kit Active Continuous Blood Gluc Cytogenetic Technologist (FreeStyle Carmenza 2 Weaver) deviceIndication s:Type 2 diabetes mellitus with diabetic polyneuropathy, with long-term current use of insulin ([facility]) Use as directed 1 each 023 Active albuterol (2.5 MG/3ML) 0.083% nebulizer solutionIndicati ons:Asthma, unspecified asthma severity, unspecified whether complicated, unspecified whether persistent USE 1 AMPULE USING A NEBULIZER FOUR TIMES DAILY 270 mL 3 023 Active Blood Pressure kit Use once a day 1 kit 023 Active Ventolin HFA 108 (90 Base) MCG/ACT inhaler INHALE 2 PUFFS BY MOUTH EVERY 4 TO 6 HOURS NEEDED 18 g 2 023 Active sertraline (Zoloft) 25 MG tablet Take 1 tablet by mouth in the morning. 023 Active fluticasone (Flonase) 50 MCG/ACT nasal spray USE 2 SPRAYS IN EACH NOSTRIL EVERY DAY 48 g 1 023 Active UltiCare Insulin Syringe 31G X /16 0.3 ML misc USE ONCE DAILY WITH lantus 100 each 3 024 Active magnesium oxide (Mag-Ox) 400 mg tabletIndication s:OTC 400 mg 2 times daily. Active omeprazole (PriLOSEC) [address] capsuleIndicatio ns:Chronic systolic heart failure (CMS/HCC) TAKE 1 CAPSULE BY MOUTH EVERY DAY 30-60 MINUTES BEFORE A MEAL 90 capsule 3 024 Active Eliquis 5 MG tabletIndication s:Chronic atrial fibrillation (CMS/HCC) TAKE 1 TABLET BY MOUTH TWICE DAILY 60 tablet 6 024 Active traZODone (Desyrel) 100 MG tablet TAKE 1 AND 1/2 TABLETS BY MOUTH AT BEDTIME 45 tablet 6 024 Active sacubitril-valsa rtan (Entresto) 97-103 MG tablet Take 1 tablet by mouth 2 times daily. 60 tablet 12 024 Active semaglutide (Ozempic, 1 MG/DOSE,) 4 MG/3ML solution pen-injector Inject 1 mg under the skin 1 (one) time per week. 1 each 024 Active Blood Pressure kitIndications:E ssential hypertension, benign For home use twice a day 1 kit 024 Active gabapentin (Neurontin) 400 MG capsuleIndicatio ns:Diabetic polyneuropathy associated with type 2 diabetes mellitus (CMS/HCC) TAKE 2 CAPSULES BY MOUTH IN THE MORNING AND AT NOON AND TAKE 3 CAPSULES AT BEDTIME 210 capsule 3 024 Active TRUEplus Lancets 33G miscIndications: Diabetic polyneuropathy associated with type 2 diabetes mellitus (CMS/HCC),Chroni c pain syndrome TEST BLOOD SUGAR THREE TIMES DAILY 100 each 11 Active digoxin (Lanoxin) 250 MCG tab;etIndication s:Chronic systolic heart failure (CMS/HCC) TAKE 1 TABLET BY MOUTH ONCE DAILY 90 tablet 1 Active empagliflozin (Jardiance) 25 MG Take 1 tablet (25 mg) by mouth Once per day. 30 tablet 11 024 2024 Active amLODIPine (Norvasc) 2.5 MG tablet Take 2 tablets (5 mg) by mouth Once per day. 60 tablet 11 024 2024 Active torsemide (Demadex) 20 MG tabletIndication s:Chronic systolic heart failure (CMS/HCC) Take 1 tablet (20 mg) by mouth 2 times daily. 180 tablet 3 024 2024 Active metoprolol succinate XL (Toprol-XL) 100 MG 24 hr tablet TAKE 2 AND 1/2 TABLETS BY MOUTH EVERY DAY 270 tablet Active Continuous Glucose Sensor (FreeStyle Carmenza 2 Sensor) miscIndications: Type 2 diabetes mellitus with diabetic polyneuropathy, with long-term current use of insulin ([facility]) USE DIRECTED TO TEST BLOOD SUGAR CHANGE EVERY 14 DAYS 2 each 3 Active insulin glargine (Lantus) 100 UNIT/ML injectionIndicat ions:Diabetic polyneuropathy associated with type 2 diabetes mellitus (CMS/HCC) INJECT 20 UNITS SUBCUTANEOUSLY EVERY EVENING 10 mL 3 Active FREESTYLE LITE test stripIndications :Diabetic polyneuropathy associated with type 2 diabetes mellitus (CMS/HCC) USE DIRECTED TO TEST BLOOD SUGAR THREE TIMES DAILY 100 strip 5 024 Active metFORMIN (Glucophage) 1000 MG tabletIndication s:Diabetic polyneuropathy associated with type 2 diabetes mellitus (CMS/HCC) TAKE 1 TABLET BY MOUTH TWICE DAILY IN THE MORNING AND IN THE EVENING WITH MEALS 180 tablet 1 Active oxyCODONE (Roxicodone) 15 MG immediate release tabletIndication s:Chronic pain syndrome Take 1 tablet (15 mg) by mouth every 6 (six) hours if needed (severe back pain) for up to 28 days. 112 tablet 025 2024 Active metFORMIN (Glucophage) 1000 MG tabletIndication s:Diabetic polyneuropathy associated with type 2 diabetes mellitus (CMS/HCC) TAKE 1 TABLET BY MOUTH TWICE DAILY IN THE MORNING AND IN THE EVENING WITH MEALS 180 tablet 1 024 2024 Discontinued oxyCODONE (Roxicodone) 15 MG immediate release tabletIndication s:Chronic pain syndrome Take 1 tablet (15 mg) by mouth every 6 (six) hours if needed (severe back pain) for up to 28 days. Do not start before February 13, 2024. 112 tablet 024 2024 Discontinued(R eorder (will not trigger notification to Pharmacy)) oxyCODONE (Roxicodone) 15 MG immediate release tabletIndication s:Chronic pain syndrome Take 1 tablet (15 mg) by mouth every 6 (six) hours if needed (severe back pain) for up to 14 days. Do not start before March 12, 2024. 56 tablet 025 2024 Discontinued Active Problems Patient Care Coordination No te Formatting of this note migh t be different from the original. C3/CM Annie Fields RN [id number] Javi Sims Problem Noted Date Diagnosed Date HTN (hypertension) 02/22/2023 02/22/2023 Assessment & Plan (08/25/2023 12:13 PM EDT): Blood pressure today high probably because of pain c/w current meds follow up with PCP Nonischemic cardiomyopathy 02/22/202302/22 Chronic back pain 03/16/2022 Diabetic neuropathy 03/10/2022 Tobacco user 01/06/2022 Heart failure with reduced ejection fraction Overview (10/03/2022): EF of 55-60% IMO update ICD (implantable cardioverter-defibrillator) in place 07/05/2021 Chronic pain syndrome 03/22/2021 Overview (09/21/2023): CT of the LS 2021 that was limited because increased BMI, they could not see all the LS area. They could see that at L5-S1 patient has severe degenerative disc disease that is causing nerve compression and that level. They commented also on possible epidural lipomatosis and suspected multilevel stenosis but could not confirm because of the low quality of the images. Assessment & Plan (08/25/2023 12:12 PM EDT): I will extend his prescription until he is due for his next one this is on 09/04/2023 it will be oxycodone 10mg Q 6hrs, patient has appointment with PCP on 09/21/23 and he will discuss plan to follow with him Chronic systolic heart failure 07/17/2018 Urinary incontinence 07/17/2018 Disorder of implantable defibrillator 01/17/2018 Diabetic polyneuropathy 11/28/2016 Pain in lower limb 02/09/2016 Recurrent major depressive episodes, moderate Asthma 06/10/2015 Osteoarthritis of ankle and foot 06/10/2015 Obstructive sleep apnea syndrome 06/10/2015 Osteoarthritis of both knees 06/10/2015 Type 2 diabetes mellitus wit h diabetic polyneuropathy, with long-term current use of insulin 06/10/2015 Depression 08/07/2012 Fatty liver 06/13/2012 Venous insufficiency (chronic) (peripheral) 03/23 Assessment & Plan (08/25/2023 12:12 PM EDT): Patient is waiting for appointment with vascular specialist Type 2 diabetes mellitus 08/20/2007 Atrial fibrillation with RVR 11/08/2005 Essential hypertension, benign 11/08/2005 Hyperlipidemia 11/08/2005 Severe obesity 11/08/2005 Lumbago 11/08/2005 Resolved Problems Problem Noted Date Diagnosed Date Resolved Date Diabetes mellitus 03/10/2022 07/13/2023 Ischemic cardiomyopathy with implantable cardioverter-defibrillator (ICD) 03/10/2022 023 Opioid abuse 08/06/2021 03/16/2022 Homeless family 11/08/2017 03/16/2022 Hernia 11/28/2016 03/16/2022 Other dyspnea and respiratory abnormality 11/08/2005 07/13/2023 Overview (10/03/2022): on Bipap machine Encounters Date Type Department Care Team Description 03/13/2024 Telephone [facility] [address] [facility] [address] Gregoria Alvarez, CLINT 03/12/2024 9:30 AM EST Office Visit [facility] [address] [place] [address] Name, MD Edmundo Chronic systolic heart failure (CMS/HCC) (Primary Dx); Chronic atrial fibrillation (CMS/HCC); Type 2 diabetes mellitus with diabetic polyneuropathy, with long-term current use of insulin (CMS/HCC); Tobacco user; Chronic pain syndrome 03/08/2024 Refill [facility] [address] [facility] [place] [address] Edmundo Smith MD Chronic pain syndrome 02/22/2024 Refill [facility] [address] [facility] [place] [address] Elisabeth Dela Cruz MD Diabetic polyneuropathy associated with type 2 diabetes mellitus ([facility]/HCC) 02/12/2024 Telephone [facility] [address] [facility] [place] [address] NameEdmundo MD Nurse Triage 02/12/2024 Refill [facility] [address] [facility] [address] Edmundo Smith MD Chronic pain syndrome 02/05/2024 Telephone [facility] [address] [facility] [place] [address] Laura Sandoval MA feb recall 01/16/2024 Telephone [facility] [address] [facility] [place] [address] Savannah William, RN refill 01/15/2024 Refill [facility] [address] [facility] [place] [address] NameEdmundo MD Chronic pain syndrome 12/28/2023 Refill [facility] [address] [facility] [place] [address] NameEdmundo MD Diabetic polyneuropathy associated with type 2 diabetes mellitus ([facility]/HCC) 12/18/2023 Refill [facility] [address] [facility] [place] [address] NameEdmundo MD Chronic pain syndrome 12/18/2023 Travel from Last 3 Months Immunizations Name Administration Dates Next Due Influenza, IIV3, injectable 02/06/2008, 7,01/25/2006 Tdap 06/01/2009 Social History Tobacco Use Types Packs/Day Years Used Date Smoking Tobacco: Every Day Cigarettes Passive Smoke Exposure: Current Smokeless Tobacco: Never Tobacco Cessation:Ready to Q uit: Not Asked; Counseling Given: Not Answered Alcohol Use Standard Drinks/Week Comments Not Currently [...] with others, in a hotel, in a halfway, living outside on the street, on a [...] Orientation Straight 12/20/2021 10 :16 AM EDT Last Filed Vital Signs Vital Sign Reading Time Taken Comments Blood Pressure 143/78 03/12/2024 9:55 AM EST Pulse 72 03/12/2024 9:38 AM EST Temperature 35.9 ??C (96.6 ??F) 03/12/2024 9:38 AM ES T Respiratory Rate 18 03/12/2024 9:38 AM EST Oxygen Saturation 98% 09/21/2023 11:38 AM EDT Inhaled Oxygen Concentration - - Weight 158 kg (348 lb) 03/12/2024 9:38 AM EST Height 190.5 cm (6' 3 ) 03/12/2024 9:38 AM EST Body Mass Index 43.5 03/12/2024 9:38 AM EST Plan of Treatment Health Maintenance Due Date Last Done Comments CT Colonography 1978 Colonoscopy 1978 Colorectal Cancer Screening 1978 FIT DNA/Cologuard 1978 FIT 1978 FOBT 1978 HIV Screening 1978 Sigmoidoscopy 1978 Pneumococcal Vaccine: Pediatrics (0 to 5 Years) and At-Risk Patients (6 to 64 Years) (1 of 2 - PCV) 1984 Diabetes: Foot Exam 1988 Eye Exam 1988 Family Planning (PISQ) 1993 Hepatitis C Screening 1996 Hepatitis A Vaccines (1 of 2 - Risk 2-dose series) 1997 Hepatitis B Vaccines (1 of 3 - 19+ 3-dose series) 1997 DTaP/Tdap/Td Vaccines (2 - Td or Tdap) 06/02/2019 06/01/2009 Diabetes: Urine Protein Screening 03/05/2022 03/05/2021 COVID-19 Vaccine ( season) 2023 Influenza Vaccine (#1) 2023 8, 12/11/2006, 01/25/2006 SDOH Screening 05/22/2024 05/23/2023 Diabetes: Hemoglobin A1C 06/10/202403/12/ 025, 09/21/2023, 05/23/2023, Additional history exists Depression Monitoring (PHQ-9) 09/09/2024 03/12/2024, 03/12/2024 Alcohol/Substance Use Screening 03/12/2025 03/12/2024 Depression Screening 03/12/2025 03/12/2024, 03/12/19 Lipid Panel 03/12/2025 03/12/2024, 03/05/2021 Tobacco Screening 03/12/2025 03/12/2024 Zoster Vaccines (1 of 2) 2028 RSV Patients and Patients Aged 60 years or older (1 - 1-dose 75+ series) 2053 HIB Vaccines Aged Out No longer eligi ble based on patient's age to complete this topic HPV Vaccines Aged Out No longer eligi ble based on patient's age to complete this topic IPV Vaccines Aged Out No longer eligi ble based on patient's age to complete this topic Meningococcal Vaccine Aged Out No sandhya анна eligible based on patient's age to complete this topic RSV under 20 months Aged Out No longe r eligible based on patient's age to complete this topic Rotavirus Vaccines Aged Out No longer eligible based on patient's age to complete this topic Procedures Procedure Name Priority Date/Time Associated Diagnosis Comments POCT TESSA-14 URINE DRUG SCREEN Routine 03/12/2024 10:25 AM EST Chronic pain syndrome LIPID PANEL, STANDARD Routine 03/12/2024 10:16 AM EST Chronic systolic heart failure (CMS/HCC) Chronic atrial fibrillation (CMS/HCC) Tobacco user Type 2 diabetes mellitus with diabetic polyneuropathy, with long-term current use of insulin (CMS/HCC) HEMOGLOBIN A1C Routine 03/12/2024 10:16 AM EST Chronic systolic heart failure (CMS/HCC) Chronic atrial fibrillation (CMS/HCC) Tobacco user Type 2 diabetes mellitus with diabetic polyneuropathy, with long-term current use of insulin (CMS/HCC) COMPREHENSIVE METABOLIC PANEL Routine 03/12/2024 10:16 AM EST Chronic systolic heart failure (CMS/HCC) Chronic atrial fibrillation (CMS/HCC) Tobacco user Type 2 diabetes mellitus with diabetic polyneuropathy, with long-term current use of insulin (CMS/HCC) CBC WITH AUTO DIFFERENTIAL Routine 03/12/2024 10:16 AM EST Chronic systolic heart failure (CMS/HCC) Chronic atrial fibrillation (CMS/HCC) Tobacco user Type 2 diabetes mellitus with diabetic polyneuropathy, with long-term current use of insulin ([facility]) ALBUMIN, RANDOM URINE W/CREATININE Routine 03/05/2021 12:46 PM EST from Last 3 Months or Most Recently Relevant to Health Maintenance Results * POCT TESSA-14 Urine Drug Screen (03/12/2024 10:25 AM EST) Pathologist [facility] THC Negative Cocaine Screen, Urine Negative Opiate Screen, Urine Negative Methamphetamine Screen Urine Negative Amphetamine Screen, Urine Negative Benzodiazepines Screen, Urine Negative Barbiturate Screen, Urine Negative Methadone Screen, Urine Negative Buprenophine Screen, Urine Negative TCA, Urine Negative MDMA Urine Negative ng/mL Oxycodone Screen, Urine Positive Phencyclidine (PCP), Urine Negative Propoxyphene, Urine Negative Fentanyl, Urine Negative QC Media Lot # [id number] Lot# Expiration Date Urine Urine specimen obtained by clean catch procedure / Unknown 03/12/2024 10:25 AM EST us Edmundo Name MD POINT OF CARE TEST ENTER/EDIT OR DERABLES Final Result * (ABNORMAL) CBC auto differential (03/12/2024 10:16 AM EST) Pathologist [facility] White Blood Count 9.5 4.8 - 10.8 X10*3/uL [facility] Red Blood Count 5.44 4.60 - 5.80 X10*6/uL [facility] Hemoglobin 15.7 14.0 - 18.0 g/dl [facility] Hematocrit 49.8 42.0 - 52.0 % [facility] Mean Corpuscular Volume 91.5 80.0 - 98.0 fL [facility] Mean Corpuscular Hemoglobin 28.9 27.0 - 33.0 pg [facility] Mean Corpuscular HGB Conc 31.5 31.0 - 36.0 g/dl [facility] Red Cell Distribution Width 14.1 11.0 - 16.0 % [facility] Platelet Count 148(L) 160 - 400 X10*3/uL [facility] Mean Platelet Volume 12.3 9.4 - 12.4 fL [facility] Neutrophils Percent Auto 72.3 45 - 73 % [facility] Imm Gran Pct Auto 0.4 0.0 - 0.4 % [facility] Lymphocytes Percent Auto 20.2 20 - 40 % [facility] Monocytes Percent Auto 6.4 2 - 11 % [facility] Eosinophils Percent Auto 0.5 0 - 4 % [facility] Basophils Percent Auto 0.2 0 - 2 % [facility] NRBC Pct Auto 0.0 0.0 - 0.2 /100WBC [facility] Neutrophils Absolute Auto 6.8 2.0 - 8.3 x10*3/uL [facility] Imm Gran Abs Auto 0.04(H) 0.00 - 0.03 X10*3/uL [facility] Lymphocytes Absolute Auto 1.9 1.2 - 4.9 X10*3/uL [facility] Monocytes Absolute Auto 0.6 0.1 - 1.2 X10*3/uL [facility] Eosinophils Absolute Auto 0.1 0.0 - 0.4 X10*3/uL [facility] Basophils Absolute Auto 0.0 0.0 - 0.2 X10*3/uL [facility] NRBC Abs Auto 0.000 0.0 - 0.012 X10*3/uL [facility] Blood Venous blood specimen / Unknown 03/12/2024 10:16 AM EST 03/12/2024 11:17 AM EST us Edmundo Name MD LAB BLOOD ORDERABLES Final Resul t [facility] [address] [place] [address] [phone] * (ABNORMAL) Hemoglobin A1c (03/12/2024 10:16 AM EST) Hemoglobin A1c 7.1(H) <6.0 % [facility] Comment:Hemoglobin A1C Refer ence Range Adults: 4.8 - 6.0 % Non diabetic: < 6.0 % Goal: < 7.0 %Additional Action Suggested: > 8.0 %Note: Hemoglobin A1c results are invalid for patients with abnormal amounts of HbF. Blood transfusions may impact the HbA1c concentration in the patient sample. Estimated Average Glucose 157 mg/dL [facility] Comment:eAG = Estimated ave rage glucose which is %A1C expressed asaverage glucose, using the formula of the [id number] Glucose study (ADAG), Diabetes Care, Vol.31,#8,Sep. 2007 Blood Venous blood specimen / Unknown 03/12/2024 10:16 AM EST 03/12/2024 11:17 AM EST us Edmundo Name LAB BLOOD ORDERABLES Final Resul t [facility] [address] [place] [phone] * (ABNORMAL) Lipid Panel, Standard (03/12/2024 10:16 AM EST) Triglycerides 101 <150 mg/dL [facility] Comment:Desirable Triglyceri de: less than 150 mg/dLBorderline High Triglyceride 150-199 mg/dLHigh Triglyceride: 200-499 mg/dLVery High Triglyceride: greater than or equal to 5OO mg/dL Cholesterol 152 <200 mg/dL [facility] Comment:Desirable Cholestero l: less than 200 mg/dLBorderline High Cholesterol: 200-239 mg/dLHigh Cholesterol: greater than 239 mg/dL LDL Cholesterol Calculated 105(H) <100 mg/dL [facility] Comment:Desirable LDL: less than 100 mg/dLNear Optimal/Above Optimal LDL: 110- 129 mg/dLBorderline High LDL: 130-159 mg/dLHigh LDL: 160-189 mg/dLVery High LDL: greater than or equal to 190 mg/dL HDL Cholesterol 27(L) >40 mg/dL [facility] Comment:Desirable HDL: great er than 40 mg/dL Note: This HDL assay may give artificially low results in patients with liver disease. Blood Venous blood specimen / Unknown 03/12/2024 10:16 AM EST 03/12/2024 11:17 AM EST us Edmundo Smith MD LAB BLOOD ORDERABLES Final Resul t [facility] [address] [place] [address] [phone] * (ABNORMAL) Comprehensive Metabolic Panel (03/12/2024 10:16 AM EST) Sodium 143 135 - 145 mmol/L [facility] Potassium 4.8 3.3 - 5.1 mmol/L [facility] Chloride 108 96 - 108 mmol/L [facility] Carbon Dioxide 28 22 - 29 mmol/L [facility] Anion Gap 12 12 - 20 [facility] Urea Nitrogen (BUN) 10 9 - 16 mg/dL [facility] Creatinine, Serum 0.78 0.5 - 1.4 mg/dL [facility] Estimated Glomerular Filt Rate >60 [facility] Comment:Chronic Kidney Disea se: Estimated GFR < 60 mL/min/[id number] Kidney Disease: Estimated GFR < 15 mL/min/1.73m2 Glucose 166(H) 60 - 115 mg/dL [facility] Calcium 8.8 8.4 - 10.2 mg/dL [facility] Bilirubin, Total 0.6 0.0 - 1.0 mg/dL [facility] Aspartate Amino Transferase 25 5 - 37 U/L [facility] Alanine Aminotransferase 19 0 - 40 U/L [facility] Total Protein 7.7 6.5 - 8.0 g/dL [facility] Albumin Level 4.1 3.5 - 5.0 g/dL [facility] Alkaline Phosphatase 68 39 - 117 U/L [facility] Blood Venous blood specimen / Unknown 03/12/2024 10:16 AM EST 03/12/2024 11:17 AM EST us Edmundo Smith MD LAB BLOOD ORDERABLES Final Resul t Performing Organization Address [facility]/ZIP Co de Phone Number [facility] [address] [place] [address] [phone] * (ABNORMAL) ALBUMIN, RANDOM URINE W/CREATININE (03/05/2021 12:46 PM EST) Microalbumin Urine 6.0 See Note: mg/dL [facility] Comment: Reference Range: ?? Reference Range Not established Microalb/Creat Ratio 63(H) <30 mcg/mg creat [facility] Comment: ?? The ADA defines abnormalities in albumin excretion as follows: ?? Albuminuria Category ?Result (mcg/mg creatinine) ?? Normal to Mildly increased ?? <30 Moderately increased ? 30-299 ?? Severely increased ? > OR = 300 ?? The ADA recommends that at least two of three specimens collected within a 3-6 month period be abnormal before considering a patient to be within a diagnostic category. Creatinine, Urine 96 20 - 320 mg/dL [facility] 03/05/2021 12:4 6 PM EST us Annie Bhat NP LAB URINE ORDERABLES Final Res ult Performing Organization Address City/[facility] Co de Phone Number [facility] [address] [place] [address], from Last 3 Months or Most Recently Relevant to Health Maintenance Insurance [address] [place] [address] [facility] C3 Care Teams Hardware Developer Relationship Specialty Start Date End Date Name, MD Edmundo [address] [place] [address] PCP - General Family Medicine 06/10/15 Jeremiah Alejo Retail Sales SpecialistSample Processor 04/28/23
--- OUTSIDE RECORDS SUMMARY | 2024-03-15 09:18 | XMS_ITS | Encounter Summary ---
Author Organization [employer] Address [address] [facility] [address] [place] [address] Care Team Providers Care Canopy Stringer Name Role Phone Name, Edmundo ANDREWS Primary Care Provider [phone] Reason for Visit * Reason Comments Med Refill Encounter Details Date Type Department Care Team ([facility] Contact Info) Description 11/20/2023 Refill [facility] [address] [place] [address] Yuriy Cooper MD [address] [place] [address] Chronic pain syndrome Social History Tobacco Use Types Packs/Day Years [...] with others, in a hotel, in a nursing home, living outside on the [address], on [...] as of this encounter Visit Diagnoses Diagnosis Chronic pain syndrome documented in this encounter Additional Health Concerns Assessment Noted Time PHQ-9 Depression Total Score: 0 05/23/19 3:48 PM EDT documented as of this encounter Care Teams Canopy Stringer Relationship Specialty Start Date End Date Name, MD Edmundo [address] [place] [address] PCP - General Family Medicine 06/10/15 Jeremiah Alejo Machine Hose CutterRn Clinical Appeals 04/28/23 documented as of this encounter
--- OUTSIDE RECORDS SUMMARY | 2024-03-15 09:19 | XMS_ITS | Encounter Summary ---
Author Organization [employer] Address [address] [place] [address] [address] [place] [address] Care Team Providers Care Animal Bounty Hunter Name Role Phone Name, Edmundo ANDREWS Primary Care Provider [phone] Encounter Details Date Type Department Care Team ([facility] st Contact Info) Description 09/07/2022 Orders Only [facility] [address] [place], [place] [phone] Lisandro Sharp MD [address] [place] [address] Chronic pain syndrome (Primary Dx) Social History Tobacco Use Types Packs/Day Years [...] this encounter Visit Diagnoses Diagnosis Chronic pain syndrome- Primary documented in this encounter Care Teams Animal Bounty Hunter Relationship Specialty Start Date End Date Name, MD Edmundo [address] [place] [phone] PCP - General Family Medicine 06/10/15 Jeremiah Alejo Professional TutorUpkeep Worker 04/28/23 documented as of this encounter
--- OUTSIDE RECORDS SUMMARY | 2024-03-15 09:19 | XMS_ITS | Encounter Summary ---
Author Organization [employer] Address [address] [place] [address] [address] [place] [address] Care Team Providers Care Route Rider Name Role Phone Name, Edmundo ANDREWS Primary Care Provider [phone] Reason for Referral * Imaging (Routine) - Authorized Specialty Diagnoses / Procedures Referred By Contac t Referred To Contact Cardiology Diagnoses Chronic systolic heart failure (CMS/HCC) Procedures Transthoracic Echo (TTE) Complete Name, MD Edmundo [address] [place] [phone] Phone: tel: fax: [address] Phone: tel: fax: Referral ID Status Reason Start Date Expiration Date Visits Requested Visits Authorized [id number] Authorized Perform Procedure 03/12/2024 03/12/2025 1 1 Reason for Visit * Reason Comments Follow-up Encounter Details Date Type Department Care Team (Late st Contact Info) Description 03/12/2024 9:30 AM EST Office Visit [facility] [address] [place] [address] [phone] NameEdmundo MD [address] [place], [place] [phone] Chronic systolic heart failure (CMS/HCC) (Primary Dx); Chronic atrial fibrillation (CMS/HCC); Type 2 diabetes mellitus with diabetic polyneuropathy, with long-term current use of insulin (CMS/HCC); Tobacco user; Chronic pain syndrome Social History Tobacco Use [...] with others, in a hotel, in a custodial, living outside on the street, on a [...] AM EDT documented as of this encounter Last Filed Vital Signs Vital Sign Reading Time Taken Comments Blood Pressure 143/78 03/12/2024 9:55 AM EST Pulse 72 03/12/2024 9:38 AM EST Temperature 35.9 ??C (96.6 ??F) 03/12/2024 9:38 AM ES T Respiratory Rate 18 03/12/2024 9:38 AM EST Oxygen Saturation - - Inhaled Oxygen Concentration - - Weight 158 kg (348 lb) 03/12/2024 9:38 AM EST Height 190.5 cm (6' 3 ) 03/12/2024 9:38 AM EST Body Mass Index 43.5 03/12/2024 9:38 AM EST documented in this encounter Progress Notes * Edmundo Smith MD - 03/12/2024 9:30 AM EST Subjective Patient ID: Hesham Zepeda is a 43 y.o. male who presents for Follow-up. Patient comes for a follow-up visit. He is doing fairly well. He tells me he has been using his medications regularly. He feels much better in terms of shortnessof breath, lower extremity edema, dyspnea on exertion. He has been walking daily and has lost a significant amount of weight. He has a personal history of nonischemic cardiomyopathy, permanent A fib, HTN, Type 2 DM. He had very low ejection fraction in the past that recovered most recently on echocardiogram at [facility]. Clinically he feels much better. He is on a very good medication regimen including Entresto, GLP-1, Jardiance. He does not check his blood sugar at home. He admits to drinking large amounts of soda daily. He assures me he is uses a GLP-1 weekly. He has lost a significant amount of weight and is interested in plastic surgery to remove excessiveskin folds on his breasts and lower abdomen. His chronic low back pain is well-controlled on his current dose of oxycodone. He is upset because he was given 56 tablets for 14 days instead of his usual 112 for the 28-day prescription cycle. I explained that this is a usual measure to make sure patients come for urine tox screens. He will provide with urine tox screen today. I also recommended he go for fasting blood work. I would like to repeat his echocardiogram as well. Review of Systems Constitutional: Negative for chills, fatigue and fever. HENT: Negative for sore throat. Respiratory: Negative for cough, chest tightness and shortness of breath. Cardiovascular: Negative for chest pain, palpitations and leg swelling. Gastrointestinal: Negative for abdominal pain and blood in stool. Musculoskeletal: Positive for back pain. Visit Vitals BP (!) 143/78 Pulse 72 Temp 96.6 ??F (35.9 ??C) (Temporal) Resp 18 Ht 6' 3 (1.905 m) Wt 348 lb (158 kg) BMI 43.50 kg/m?? Smoking Status Every Day BSA 2.89 m?? Objective Physical Exam Constitutional: Appearance: Normal appearance. Cardiovascular: Rate and Rhythm: Normal rate. Rhythm irregular. Heart sounds: No murmur heard. Pulmonary: Effort: Pulmonary effort is normal. No respiratory distress. Breath sounds: No wheezing, rhonchi or rales. Abdominal: Palpations: Abdomen is soft. Tenderness: There is no abdominal tenderness. Musculoskeletal: Right lower leg: Edema present. Left lower leg: Edema present. Comments: No lower extremity edema. He has chronic skin discoloration of venous insufficiency that is unchanged from his baseline. Neurological: Mental Status: He is alert. Latest Reference Range & Units 03/12/24 10:25 Methamphetamine Screen Urine Negative Propoxyphene, Urine Negative Barbiturate Screen, Urine Negative Cocaine Screen, Urine Negative TCA, Urine Negative Amphetamine Screen, Urine Negative Benzodiazepines Screen, Urine Negative Buprenophine Screen, Urine Negative MDMA URINE ng/mL Negative Fentanyl, Urine Negative Methadone Screen, Urine Negative Opiate Screen, Urine Negative Oxycodone Screen, Urine Positive Phencyclidine (PCP), Urine Negative THC Negative QC Media Lot # [id number] Current Outpatient Medications on File Prior to Visit Medication Sig Dispense Refill albuterol (2.5 MG/3ML) 0.083% nebulizer solution USE 1 AMPULE USING A NEBULIZER FOUR TIMES DAILY 270 mL 3 Alcohol Swabs (Alcohol Prep) pads amLODIPine (Norvasc) 2.5 MG tablet Take 2 tablets (5 mg) by mouth Once per day. 60 tablet 11 Blood Glucose Monitoring Suppl (ThanxStyle Lite) w/Device kit Blood Pressure kit Use once a day 1 kit 0 Blood Pressure kit For home use twice a day 1 kit 0 Continuous Blood Gluc Lock Plater (ThanxStyle Carmenza 2 [place]) device Use as directed 1 each 0 Continuous Glucose Sensor (FreeStyle Carmenza 2 Sensor) [facility] USE DIRECTED TO TEST BLOOD SUGAR CHANGE EVERY 14 DAYS 2 each 3 digoxin (Lanoxin) 250 MCG tab;et TAKE 1 TABLET BY MOUTH ONCE DAILY 90 tablet 1 Eliquis 5 MG tablet TAKE 1 TABLET BY MOUTH TWICE DAILY 60 tablet 6 empagliflozin (Jardiance) 25 MG Take 1 tablet (25 mg) by mouth Once per day. 30 tablet 11 fluticasone (Flonase) 50 MCG/ACT nasal spray USE 2 SPRAYS IN EACH NOSTRIL EVERY DAY 48 g 1 FREESTYLE LITE test strip USE DIRECTED TO TEST BLOOD SUGAR THREE TIMES DAILY 100 strip 5 gabapentin (Neurontin) 400 MG capsule TAKE 2 CAPSULES BY MOUTH IN THE MORNING AND AT NOON AND TAKE 3 CAPSULES AT BEDTIME 210 capsule 3 insulin glargine (Lantus) 100 UNIT/ML injection INJECT 20 UNITS SUBCUTANEOUSLY EVERY EVENING 10 mL 3 Insulin Syringe-Needle U-100 (Advocate Insulin Syringe) 30G X 5/16 0.3 ML misc magnesium oxide (Mag-Ox) 400 mg tablet 400 mg 2 times daily. metFORMIN (Glucophage) 1000 MG tablet TAKE 1 TABLET BY MOUTH TWICE DAILY IN THE MORNING AND IN THE EVENING WITH MEALS 180 tablet 1 metoprolol succinate XL (Toprol-XL) 100 MG 24 hr tablet TAKE 2 AND 1/2 TABLETS BY MOUTH EVERY DAY 270 tablet 1 naloxone (Narcan) 4 mg/0.1 mL nasal spray Administer 0.1 mL into affected nostril(s). Given in 1 nostril and may repeat dose every 2-3 minutes as needed alternating nostrils with each dose. omeprazole (PriLOSEC) [address] capsule TAKE 1 CAPSULE BY MOUTH EVERY DAY 30-60 MINUTES BEFORE A MEAL 90 capsule 3 sacubitril-valsartan (Entresto) 97-103 MG tablet Take 1 tablet by mouth 2 times daily. 60 tablet 12 semaglutide (Ozempic, 1 MG/DOSE,) 4 MG/3ML solution pen-injector Inject 1 mg under the skin 1 (one)time per week. 1 each 11 sertraline (Zoloft) 25 MG tablet Take 1 tablet by mouth in the morning. torsemide (Demadex) 20 MG tablet Take 1 tablet (20 mg) by mouth 2 times daily. 180 tablet 3 traZODone (Desyrel) 100 MG tablet TAKE 1 AND 1/2 TABLETS BY MOUTH AT BEDTIME 45 tablet 6 TRUEplus Lancets 33G misc TEST BLOOD SUGAR THREE TIMES DAILY 100 each 11 UltiCare Insulin Syringe 31G X 5/16 0.3 ML misc USE ONCE DAILY WITH lantus 100 each 3 Ventolin HFA 108 (90 Base) MCG/ACT inhaler INHALE 2 PUFFS BY MOUTH EVERY 4 TO 6 HOURS NEEDED 18 g 2 [DISCONTINUED] oxyCODONE (Roxicodone) 15 MG immediate release tablet Take 1 tablet (15 mg) by mouthevery 6 (six) hours if needed (severe back pain) for up to 28 days. Do not start before February 13, 2024. 112 tablet 0 [DISCONTINUED] oxyCODONE (Roxicodone) 15 MG immediate release tablet Take 1 tablet (15 mg) by mouthevery 6 (six) hours if needed (severe back pain) for up to 14 days. Do not start before February. 56 tablet 0 No current facility-administered medications on file prior to visit. Assessment/Plan Diagnoses and all orders for this visit: Chronic systolic heart failure ([facility]) Comments: Continue current medications. Repeat echocardiogram. Check blood work listed below. Provided EF, HbA1c is good I will send him to plastic surgery for the skin folds after his weight loss. Orders: - CBC auto differential; Future - Comprehensive Metabolic Panel; Future - Hemoglobin A1c; Future - Albumin, Random Urine W/Creatinine; Future - Lipid Panel, Standard; Future - Transthoracic Echo (TTE) Complete; Future Chronic atrial fibrillation ([facility]) Comments: Continue rate control and Eliquis. Orders: - CBC auto differential; Future - Comprehensive Metabolic Panel; Future - Hemoglobin A1c; Future - Albumin, Random Urine W/Creatinine; Future - Lipid Panel, Standard; Future Type 2 diabetes mellitus with diabetic polyneuropathy, with long-term current use of insulin ([facility]) Comments: Continue current medications. I recommended to avoid soda and cigarettes. Check fasting blood work. Orders: - CBC auto differential; Future - Comprehensive Metabolic Panel; Future - Hemoglobin A1c; Future - Albumin, Random Urine W/Creatinine; Future - Lipid Panel, Standard; Future Tobacco user - CBC auto differential; Future - Comprehensive Metabolic Panel; Future - Hemoglobin A1c; Future - Albumin, Random Urine W/Creatinine; Future - Lipid Panel, Standard; Future Chronic pain syndrome Comments: Chronic low back pain. I will keep him on the same dose of oxycodone that is half of what he used last year. Check urine tox screen. Orders: - oxyCODONE (Roxicodone) 15 MG immediate release tablet; Take 1 tablet (15 mg) by mouth every 6 (six) hours if needed (severe back pain) for up to 28 days. - POCT TESSA-14 Urine Drug Screen documented in this encounter Plan of Treatment Scheduled Orders Name Type Priority Associated Diagnoses Orde r Schedule Albumin, Random Urine W/Creatinine Lab Routine Chronic systolic heart failure (CMS/HCC) Chronic atrial fibrillation (CMS/HCC) Tobacco user Type 2 diabetes mellitus with diabetic polyneuropathy, with long-term current use of insulin (CMS/HCC) Expected: 03/12/2024 (Approximate), Expires: 03/12/2025 Transthoracic Echo (TTE) Complete Echocardiography Routine Chronic systolic heart failure (CMS/HCC) Expected: 03/12/2024 (Approximate), Expires: 03/12/2026 documented as of this encounter Procedures Procedure Name Priority Date/Time Associated Diagnosis Comments POCT TESSA-14 URINE DRUG SCREEN Routine 03/12/2024 10:25 AM EST Chronic pain syndrome CBC WITH AUTO DIFFERENTIAL Routine 03/12/2024 10:16 AM EST Chronic systolic heart failure (CMS/HCC) Chronic atrial fibrillation (CMS/HCC) Tobacco user Type 2 diabetes mellitus with diabetic polyneuropathy, with long-term current use of insulin ([facility]) HEMOGLOBIN A1C Routine 03/12/2024 10:16 AM EST Chronic systolic heart failure (CMS/HCC) Chronic atrial fibrillation (CMS/HCC) Tobacco user Type 2 diabetes mellitus with diabetic polyneuropathy, with long-term current use of insulin ([facility]) LIPID PANEL, STANDARD Routine 03/12/2024 10:16 AM EST Chronic systolic heart failure (CMS/HCC) Chronic atrial fibrillation (CMS/HCC) Tobacco user Type 2 diabetes mellitus with diabetic polyneuropathy, with long-term current use of insulin ([facility]) COMPREHENSIVE METABOLIC PANEL Routine 03/12/2024 10:16 AM EST Chronic systolic heart failure (CMS/HCC) Chronic atrial fibrillation (CMS/HCC) Tobacco user Type 2 diabetes mellitus with diabetic polyneuropathy, with long-term current use of insulin ([facility]) documented in this encounter Results * POCT TESSA-14 Urine Drug Screen (03/12/2024 10:25 AM EST) THC Negative Cocaine Screen, Urine Negative Opiate Screen, Urine Negative Methamphetamine Screen Urine Negative Amphetamine Screen, Urine Negative Benzodiazepines Screen, Urine Negative Barbiturate Screen, Urine Negative Methadone Screen, Urine Negative Buprenophine Screen, Urine Negative TCA, Urine Negative MDMA Urine Negative ng/mL Oxycodone Screen, Urine Positive Phencyclidine (PCP), Urine Negative Propoxyphene, Urine Negative Fentanyl, Urine Negative QC Media Lot # [id number] Lot# Expiration Date Urine Urine specimen obtained by clean catch procedure / Unknown 03/12/2024 10:25 AM EST us Edmundo Name POINT OF CARE TEST ENTER/EDIT OR DERABLES Final Result * (ABNORMAL) Lipid Panel, Standard (03/12/2024 10:16 AM EST) Triglycerides 101 <150 mg/dL [facility] Comment:Desirable Triglyceri de: less than 150 mg/dLBorderline High Triglyceride 150-199 mg/dLHigh Triglyceride: 200-499 mg/dLVery High Triglyceride: greater than or equal to 5OO mg/dL Cholesterol 152 <200 mg/dL [facility] Comment:Desirable Cholestero l: less than 200 mg/dLBorderline High Cholesterol: 200-239 mg/dLHigh Cholesterol: greater than 239 mg/dL LDL Cholesterol Calculated 105(H) <100 mg/dL [facility] Comment:Desirable LDL: less than 100 mg/dLNear Optimal/Above Optimal LDL: 110- 129 mg/dLBorderline High LDL: 130-159 mg/dLHigh LDL: 160-189 mg/dLVery High LDL: greater than or equal to 190 mg/dL HDL Cholesterol 27(L) >40 mg/dL [facility] Comment:Desirable HDL: great er than 40 mg/dL Note: This HDL assay may give artificially low results in patients with liver disease. Blood Venous blood specimen / Unknown 03/12/2024 10:16 AM EST 03/12/2024 11:17 AM EST Edmundo Smith MD LAB BLOOD ORDERABLES Final Resul t Performing Organization Address [facility] de Phone Number [facility] [address] [place] [phone] * (ABNORMAL) Hemoglobin A1c (03/12/2024 10:16 AM EST) Hemoglobin A1c 7.1(H) <6.0 % [facility] Comment:Hemoglobin A1C Refer ence Range Adults: 4.8 - 6.0 % Non diabetic: < 6.0 % Goal: < 7.0 %Additional Action Suggested: > 8.0 %Note: Hemoglobin A1c results are invalid for patients with abnormal amounts of HbF. Blood transfusions may impact the HbA1c concentration in the patient sample. Estimated Average Glucose 157 mg/dL [facility] Comment:eAG = Estimated ave rage glucose which is %A1C expressed asaverage glucose, using the formula of the [id number] Glucose study (ADAG), Diabetes Care, Vol.31,#8,Sep. 2007 Blood Venous blood specimen / Unknown 03/12/2024 10:16 AM EST 03/12/2024 11:17 AM EST us Edmundo Smith MD LAB BLOOD ORDERABLES Final Resul t Performing Organization Address [facility] de Phone Number [facility] [address] [place] [phone] * (ABNORMAL) Comprehensive Metabolic Panel (03/12/2024 10:16 AM EST) Sodium 143 135 - 145 mmol/L [facility] Potassium 4.8 3.3 - 5.1 mmol/L [facility] Chloride 108 96 - 108 mmol/L [facility] Carbon Dioxide 28 22 - 29 mmol/L [facility] Anion Gap 12 12 - 20 [facility] Urea Nitrogen (BUN) 10 9 - 16 mg/dL [facility] Creatinine, Serum 0.78 0.5 - 1.4 mg/dL [facility] Estimated Glomerular Filt Rate >60 [facility] Comment:Chronic Kidney Disea se: Estimated GFR < 60 mL/min/[id number] Kidney Disease: Estimated GFR < 15 mL/min/1.73m2 Glucose 166(H) 60 - 115 mg/dL [facility] Calcium 8.8 8.4 - 10.2 mg/dL [facility] Bilirubin, Total 0.6 0.0 - 1.0 mg/dL [facility] Aspartate Amino Transferase 25 5 - 37 U/L [facility] Alanine Aminotransferase 19 0 - 40 U/L [facility] Total Protein 7.7 6.5 - 8.0 g/dL [facility] Albumin Level 4.1 3.5 - 5.0 g/dL [facility] Alkaline Phosphatase 68 39 - 117 U/L [facility] Blood Venous blood specimen / Unknown 03/12/2024 10:16 AM EST 03/12/2024 11:17 AM EST us Edmundo Name MD LAB BLOOD ORDERABLES Final Resul t [facility] [address] [place] [address] [phone] * (ABNORMAL) CBC auto differential (03/12/2024 10:16 AM EST) White Blood Count 9.5 4.8 - 10.8 X10*3/uL [facility] Red Blood Count 5.44 4.60 - 5.80 X10*6/uL [facility] Hemoglobin 15.7 14.0 - 18.0 g/dl [facility] Hematocrit 49.8 42.0 - 52.0 % [facility] Mean Corpuscular Volume 91.5 80.0 - 98.0 fL [facility] Mean Corpuscular Hemoglobin 28.9 27.0 - 33.0 pg [facility] Mean Corpuscular HGB Conc 31.5 31.0 - 36.0 g/dl [facility] Red Cell Distribution Width 14.1 11.0 - 16.0 % [facility] Platelet Count 148(L) 160 - 400 X10*3/uL [facility] Mean Platelet Volume 12.3 9.4 - 12.4 fL [facility] Neutrophils Percent Auto 72.3 45 - 73 % [facility] Imm Gran Pct Auto 0.4 0.0 - 0.4 % [facility] Lymphocytes Percent Auto 20.2 20 - 40 % [facility] Monocytes Percent Auto 6.4 2 - 11 % [facility] Eosinophils Percent Auto 0.5 0 - 4 % [facility] Basophils Percent Auto 0.2 0 - 2 % [facility] NRBC Pct Auto 0.0 0.0 - 0.2 /100WBC [facility] Neutrophils Absolute Auto 6.8 2.0 - 8.3 x10*3/uL [facility] Imm Gran Abs Auto 0.04(H) 0.00 - 0.03 X10*3/uL [facility] Lymphocytes Absolute Auto 1.9 1.2 - 4.9 X10*3/uL [facility] Monocytes Absolute Auto 0.6 0.1 - 1.2 X10*3/uL [facility] Eosinophils Absolute Auto 0.1 0.0 - 0.4 X10*3/uL [facility] Basophils Absolute Auto 0.0 0.0 - 0.2 X10*3/uL [facility] NRBC Abs Auto 0.000 0.0 - 0.012 X10*3/uL [facility] Blood Venous blood specimen / Unknown 03/12/2024 10:16 AM EST 03/12/2024 11:17 AM EST us Edmundo Name LAB BLOOD ORDERABLES Final Resul t [facility] [address] [place] [phone] documented in this encounter Visit Diagnoses Diagnosis Chronic systolic heart failure (CMS/HCC)- Primary Chronic systolic heart failure Chronic atrial fibrillation (CMS/HCC) Atrial fibrillation Type 2 diabetes mellitus with diabetic polyneuropathy, with long-term current use of insulin ([facility]) Tobacco user Tobacco use disorder Chronic pain syndrome documented in this encounter Additional Health Concerns Assessment Noted Time PHQ-9 Depression Total Score: 10 025 11:02 AM EST documented as of this encounter Care Teams Route Rider Relationship Specialty Start Date End Date Name, MD Edmundo [address] [place] [address] PCP - General Family Medicine 06/10/15 Jeremiah Alejo Knuckle BenderWaxer Floor 04/28/23 documented as of this encounter
--- OUTSIDE RECORDS SUMMARY | 2024-03-15 09:19 | XMS_ITS | Encounter Summary ---
Author Organization [employer] Address [address] [place] [address] Care Team Providers Care Mica Machine Operator Name Role Phone Name, Edmundo ANDREWS Primary Care Provider [phone] Encounter Details Date Type Department Care Team ([facility] Contact Info) Description 09/25/2023 Orders Only [facility] [address] [place] [phone] Name, MD Edmundo [address] [place] [address] Social History Tobacco Use Types Packs/Day Years [...] with others, in a hotel, in a fci, living outside on the street, on a [...] documented as of this encounter Care Teams Mica Machine Operator Relationship Specialty Start Date End Date Name, MD Edmundo [address] [place] [address] PCP - General Family Medicine 06/10/15 Jeremiah Alejo Rn AmbulatoryScrap Sorter 04/28/23 documented as of this encounter
--- OUTSIDE RECORDS SUMMARY | 2024-03-15 09:19 | XMS_ITS | Encounter Summary ---
Author Organization [employer] Address [address] [facility] [address] [place] [address] Care Team Providers Care Patent Drafter Name Role Phone Name, Edmundo ANDREWS Primary Care Provider [phone] Reason for Visit * Reason Onset Date Comments Med Refill 03/08/2024 Encounter Details Date Type Department Care Team ([facility] st Contact Info) Description 03/08/2024 Refill [facility] [address] [place] [address] Name, MD Edmundo [address] [place] [address] Chronic pain syndrome Social History Tobacco Use [...] with others, in a hotel, in a senior care, living outside on the street, on a [...] encounter Miscellaneous Notes * Telephone Encounter - Yousuf Heredia - 03/08/2024 10:23 AM EST TC from pt requesting medication refill. Medications needing refill : oxyCODONE (Roxicodone) 15 MG immediate release tablet To be sent to: [facility] documented in this encounter Plan of Treatment Not on file documented as of this encounter Visit Diagnoses Diagnosis Chronic pain syndrome documented in this encounter Additional Health Concerns Assessment Noted Time PHQ-9 Depression Total Score: 0 05/23/19 24 3:48 PM EDT documented as of this encounter Care Teams Patent Drafter Relationship Specialty Start Date End Date Name, MD Edmundo [address] [place] [address] PCP - General Family Medicine 06/10/15 Jeremiah Alejo Ophthalmic Medical TechnicianFinal Armature Tester 04/28/23 documented as of this encounter
--- OUTSIDE RECORDS SUMMARY | 2024-03-15 09:19 | XMS_ITS | Encounter Summary ---
Author Organization [employer] Address [address] [facility] [address] [place] [address] Care Team Providers Care Supervisor Photostat Name Role Phone Name, Edmundo ANDREWS Primary Care Provider [phone] Reason for Visit * Reason Comments Med Refill Encounter Details Date Type Department Care Team ([facility] Contact Info) Description 02/22/2024 Refill [facility] MED[facility]INE [address] [place] [address] Elisabeth Dela Cruz MD [address] [place] [address] Diabetic polyneuropathy associated with type 2 diabetes [...] polyneuropathy associated with type 2 diabetes mellitus ([facility]) documented in this encounter Additional Health Concerns Assessment Noted Time PHQ-9 Depression Total Score: 0 05/23/19 24 3:48 PM EDT documented as of this encounter Care Teams Supervisor Photostat Relationship Specialty Start Date End Date Name, MD Edmundo [address] [place] [address] PCP - General Family Medicine 06/10/15 Jeremiah Alejo Pre K Special Education TeacherInventory And Pricing Associate 04/28/23 documented as of this encounter
--- OUTSIDE RECORDS SUMMARY | 2024-03-15 09:19 | XMS_ITS | Encounter Summary ---
Author Organization [employer] Address [address] [place] [address] [address] [place] [address] Care Team Providers Care Clinic Manager Name Role Phone Name, Edmundo ANDREWS Primary Care Provider [phone] Encounter Details Date Type Department Care Team ([facility] st Contact Info) Description 09/23/2022 Abstract [facility] [address] [place] [address] Name, MD Edmundo [address] [place] [address] Social History Tobacco Use Types Packs/Day Years [...] on filedocumented in this encounter Care Teams Clinic Manager Relationship Specialty Start Date End Date Name, MD Edmundo [address] [place] [address] PCP - General Family Medicine 06/10/15 Jeremiah Alejo Director Of Public SafetySupervisor Production Department 04/28/23 documented as of this encounter
--- OUTSIDE RECORDS SUMMARY | 2024-03-15 09:19 | XMS_ITS | Encounter Summary ---
Author Organization [employer] Address [address] [place] [address] [address] [place] [address] Care Team Providers Care Brazer Helper Induction Name Role Phone Name, Edmundo ANDREWS Primary Care Provider [phone] Encounter Details Date Type Department Care Team ([facility] Contact Info) Description 02/03/2022 [facility] Health Information Management [address] [place] [address] Name, MD Edmundo [address] [place] [address] Social History Tobacco Use Types Packs/Day Years Used Date Smoking Tobacco: Never Assessed Sex and Gender Information Value Date Recorded Sex Assigned at Male 12/20/2021 10:16 AM EDT Legal Sex Male 10:16 AM EDT Gender Identity Male 12/20/2021 10:16 AM EDT Sexual Orientation Straight 12/20/2021 10 :16 AM EDT documented as of this encounter Plan of Treatment Not on file documented as of this encounter Visit Diagnoses Not on filedocumented in this encounter Care Teams Brazer Helper Induction Relationship Specialty Start Date End Date Name, MD Edmundo [address] [place], [place] [id number] PCP - General Family Medicine 06/10/15 Jeremiah Alejo Soakers SupervisorRespiratory Therapy Director 04/28/23 documented as of this encounter
== END ==
LOC: HO.CARD 08:55
PROVIDERS: PCP Internal Medicine Geriatric Medicine; Visit Provider Internal Medicine Geriatric Medicine
DX: I50.22 Chronic systolic (congestive) heart failure (principal)
CPT/HCPCS: 93306

== ENCOUNTER → 2024-03-15 08:58 | Outpatient (BNV) | payer MEDICAID, SELFPAY | PROVIDERS: PCP Internal Medicine Geriatric Medicine; Visit Provider Internal Medicine Cardiovascular Disease | DX: I50.22 Chronic systolic (congestive) heart failure (principal); I51.7 Cardiomegaly; I36.1 Nonrheumatic tricuspid (valve) insufficiency | CPT/HCPCS: 93306 ==

== ENCOUNTER → 2024-03-26 15:05 | Outpatient (BNV) | payer MEDICAID, SELFPAY | PROVIDERS: Visit Provider Radiology Diagnostic Radiology | DX: M25.572 Pain in left ankle and joints of left foot (principal); M25.562 Pain in left knee | CPT/HCPCS: 73564; 73610 ==

== ENCOUNTER 2024-05-16 09:52 | Outpatient (AMB) | payer MEDICAID, SELFPAY ==
--- NOTE | 2024-05-16 09:55 | MHC.OFFVIS ---
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 Patient reports that on 03/25/24 he was clearing off his car when he slipped and fell landing on the left knee and ankle. Patient was seen with his PCP who placed him in a walking boot and provided him with crutches on 03/26/24.Taking Tylenol 500mg prn pain. He states that his ankle pain is through out the whole ankle however the pain is focused more on the lateral aspect of the ankle. History of possible gout in left ankle 2023. Allergies aspirin [ASPIRIN] Allergy (Severe, Verified 05/16/24 09:59) ANGIOEDEMA amoxicillin [From AUGMENTIN] Allergy (Unknown, Verified 05/16/24 09:59) UNKNOWN clavulanic acid [From AUGMENTIN] Allergy (Unknown, Verified 05/16/24 09:59) UNKNOWN Medication List - Last Reviewed 05/16/24 by Danica Nova apixaban (Eliquis) 5 mg PO BID blood sugar diagnostic (FreeStyle Lite Strips) As directed digoxin 250 mcg PO DAILY empagliflozin (Jardiance) 25 mg PO DAILY gabapentin mg PO metformin 1,000 mg PO metoprolol succinate ER 250 mg PO DAILY oxycodone 20 mg PO Q6H PRN sacubitril-valsartan 97-103 mg (Entresto) 1 tab PO BID semaglutide (Ozempic) 1 mg subcut QWEEK torsemide 20 mg PO BID trazodone 150 mg PO BEDTIME HPI HPI 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 He states on 03/25/2024 he fell, 03/26/2024 he presented to the walk-in clinic where x-rays were obtained and he was placed in a boot and referred to our office for ortho eval. He states he has been ambulating in the boot however the last several weeks he has developed worsening pain in the foot and ankle and has been unable to perform range of motion. He does have a history of Congestive heart failure, diabetes and AFib on Eliquis. PFSH Medical History (Updated 05/16/24 @ 10:40 by Zachary Castillo PA-C) Diabetes Afib CHF (congestive heart failure) Social History (Updated 05/16/24 @ 10:00 by Danica Nova) Alcohol intake: never Patient Tobacco Use Status: Former Tobacco user Cigarette Packs Per Day: 10 Current occupational status: unemployed Review of Systems Const All systems reviewed & are unremarkable except as noted in HPI and below Physical Exam Vital Signs: BMI result Body Mass Index 44.5 Const General: cooperative and no acute distress Orientation/consciousness: patient oriented x3 Resp Effort & Inspection: normal respiratory effort and able to speak in complete sentences Cardio Peripheral pulses: Peripheral pulses 2+ throughout Neuro General: patient oriented x3 Extrem Other: Left ankle skin is intact however significantly mottled and evidence of venous stasis is present. The left ankle joint is collapse medially. Results Reviewed Results Reviewed: X-rays of the left ankle obtained in the office today and reviewed by me show significant osteoarthritis of the ankle joint with what appears to be Charcot foot Assessment & Plan Assessment & Plan (1) Venous insufficiency of both lower extremities: Code(s): I87.2 - Venous insufficiency (chronic) (peripheral) Category: Medical (2) Charcot joint of left foot: Code(s): M14.672 - Charcot's joint, left ankle and foot Category: Medical Plan I explained to the patient the extent of his condition and options available. I explained a referral to a foot and ankle specialist would be helpful to determine continued conservative versus surgical intervention. I also put in a referral for pain management to help with his chronic pain and worsening symptoms. I also put in a referral for vascular surgery as he has what appears to be some venous insufficiency. I explained delaying further treatment for his insufficiency would likely limit if not prevent any type of surgery that may be available for his left foot. He is content with this plan and will follow up as needed. Orders: Orders XR ankle LT min 3V Today M25.572 - Pain in left ankle and joints of left foot Referrals Pain Management Referral G89.29 - Other chronic pain Orthopedics Referral M14.672 - Charcot's joint, left ankle and foot Vascular Surgery Referral I87.2 - Venous insufficiency (chronic) (peripheral) Coding Level of Care Code New Pt Level 4 (98872) Complex EM visit Add On G2211 Diagnoses Venous insufficiency of both lower extremities I87.2 Charcot joint of left foot M14.672
[2024-05-16 09:59] VITALS: BMI 44.5
== END 2024-05-16 10:42 | disposition home or self-care (01) ==
LOC: HO.HOS 09:53
PROVIDERS: Visit Provider Physician Assistant
DX: M14.672 Charcot's joint, left ankle and foot (principal); I87.2 Venous insufficiency (chronic) (peripheral)
CPT/HCPCS: 99204

== ENCOUNTER 2024-05-16 09:52 | Outpatient (REF) | payer MEDICAID, SELFPAY ==
--- NOTE | ~2024-05-16 | XR_ITS ---
EXAMINATION: XR ANKLE 3 OR MORE VIEWS LEFT HISTORY: M25.572 - Pain in left ankle and joints of left foot COMPARISON: Comparison is made with the prior examination dated 03/26/2024. FINDINGS: Three views of the left ankle are submitted. Osseous mineralization is normal. A well-corticated osseous densities again noted adjacent to the tip of the medial malleolus which is likely the result of old trauma. There is no acute fracture or dislocation. There is moderate degenerative change of the intertarsal joints. There is a small plantar calcaneal spur. Vascular calcifications. XR/XR ankle LT min 3V IMPRESSION: Moderate degenerative change of the intertarsal joints. Electronically signed by: Stone Zamorano MD 05/16/2024 01:13 PM EDT
== END 2024-05-16 09:53 | disposition home or self-care (01) ==
LOC: HO.HOSX 09:52
PROVIDERS: Visit Provider Physician Assistant
DX: M25.572 Pain in left ankle and joints of left foot (principal); I87.2 Venous insufficiency (chronic) (peripheral); M14.672 Charcot's joint, left ankle and foot
CPT/HCPCS: 73610; 99212

== ENCOUNTER → 2024-05-16 10:21 | Outpatient (BNV) | payer MEDICAID, SELFPAY | PROVIDERS: Visit Provider Radiology Diagnostic Radiology | DX: M25.572 Pain in left ankle and joints of left foot (principal) | CPT/HCPCS: 73610 ==

== ENCOUNTER 2024-07-05 11:37 | Outpatient (REF) | payer MEDICAID, SELFPAY ==
[2024-07-05 13:04] LABS: MANUAL DIFF FLAG NO
[2024-07-05 13:14] LABS: Basophils Percent Auto 0.3 % (0-2); Eosinophils Absolute Auto 0.1 X10*3/uL (0.0-0.4); Eosinophils Percent Auto 0.5 % (0-4); Hematocrit 42.3 % (42.0-52.0); Hemoglobin 14.2 g/dl (14.0-18.0); Imm Gran Abs Auto 0.04 X10*3/uL (0.00-0.03); Imm Gran Pct Auto 0.4 % (0.0-0.4); Lymphocytes Absolute Auto 2.1 X10*3/uL (1.2-4.9); Lymphocytes Percent Auto 21.2 % (20-40); Mean Corpuscular HGB Conc 33.6 g/dl (31.0-36.0); Mean Corpuscular Hemoglobin 29.3 pg (27.0-33.0); Mean Corpuscular Volume 87.4 fL (80.0-98.0); Mean Platelet Volume 11.9 fL (9.4-12.4); Monocytes Absolute Auto 0.6 X10*3/uL (0.1-1.2); Monocytes Percent Auto 6.1 % (2-11); Neutrophils Absolute Auto 6.9 x10*3/uL (2.0-8.3); Neutrophils Percent Auto 71.5 % (45-73); Platelet Count 128 X10*3/uL (160-400); Red Blood Count 4.84 X10*6/uL (4.60-5.80); Red Cell Distribution Width 13.9 % (11.0-16.0); White Blood Count 9.7 X10*3/uL (4.8-10.8)
[2024-07-05 13:37] LABS: Anion Gap 13 (12-20); Blood Urea Nitrogen 11 mg/dL (9-16); Calcium 8.8 mg/dL (8.4-10.2); Carbon Dioxide 26 mmol/L (22-29); Chloride 106 mmol/L (96-108); Estimated Glomerular Filt Rate > 60; Glucose Random 205 mg/dL (60-115); Potassium 3.8 mmol/L (3.3-5.1); Sodium 141 mmol/L (135-145)
[2024-07-05 13:41] LABS: Creatinine Urine 208.11 mg/dL; Microalbum/Creatinine Ratio Ur 16.8 ug/mg cr (<30)
== END 2024-07-05 11:38 | disposition home or self-care (01) ==
LOC: HO.HHCL 11:37
PROVIDERS: Visit Provider Internal Medicine Geriatric Medicine
DX: I11.0 Hypertensive heart disease with heart failure (principal); I50.22 Chronic systolic (congestive) heart failure; E11.42 Type 2 diabetes mellitus with diabetic polyneuropathy; Z79.4 Long term (current) use of insulin; G89.4 Chronic pain syndrome
CPT/HCPCS: 36415; 80048; 82043; 82570; 85025

== ENCOUNTER 2024-07-24 09:52 | Outpatient (AMB) | payer MEDICAID, SELFPAY ==
--- NOTE | 2024-07-24 09:53 | MHC.OFFVIS ---
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 The patient's left ankle pain is a result of an injury sustained from a fall on March 26, 2024. The patient reports the pain as sharp and stabbing, causing disturbances in sleep if the ankle moves. Despite using a stabilizing boot since the time of injury, mobility is severely hindered, preventing regular ankle movement without significant pain. Venous insufficiency, documented by discoloration of both legs extending to the knees, has been evident for years, during which a vascular surgery referral was reportedly unfulfilled due to personal caregiving responsibilities. The patient's diabetes management is suboptimal, revealed by sporadic monitoring and a lack of regular hemoglobin A1c evaluations. Current pharmacological management includes Ozempic, Lantus, Jardiance and Metformin. The patient's history of chronic pain includes long-term opioid therapy, primarily oxycodone, with reports of inadequate pain control following a reduction in dosage. This has necessitated occasional extra doses to cope with daily functional demands, highlighting concerns over potential dependency. He was recently evaluated by [facility] orthopedics department, referred to foot and ankle specialist at [facility]. He states that nobody has call to schedule an appointment. There is also an order for a CT scan of his ankle, he states nobody has call to schedule this either. There was a referral for vascular, patient would prefer to see Dr. Chavez at [facility] as he is familiar with her, she cared for his father. - Onset and Timing: Began March 26, 2024, post-fall. - Quality and Character: Sharp, stabbing pain. - Primary Location: Left ankle. - Radiation: None reported. - Exacerbating Factors: Movement, specifically when rotating the ankle. - Relieving Factors: Immobilization. - Interference: Awakenings at night, difficulty walking, and inability to rotate ankle. - Affect: Patient reports chronic pain impacting mood and sleep, affecting caregiving capabilities. - Analgesia: Oxycodone reduced from 30 mg to 20 mg; reported inadequate pain control. - Adverse Effects: Dependence on extra doses due to dosage reduction. - Activities of Daily Living: Pain limits mobility, especially with caregiving tasks. - Aberrant Drug Related Behaviors: Reports increased dosages occasionally to manage pain. [facility] Medical History (Updated 07/24/24 @ 13:36 by Manisha Pratt, TEST ENGINE MECHANIC, NEUROLOGY MANAGER) ICD (implantable cardioverter-defibrillator) in place Hyperlipidemia Hypertension Obesity Obstructive sleep apnea Depression Diabetes Afib CHF (congestive heart failure) Social History (Updated 05/16/24 @ 10:00 by Danica Nova) Alcohol intake: never Patient Tobacco Use Status: Former Tobacco user Cigarette Packs Per Day: 10 Current occupational status: unemployed Review of Systems Const Details: - Musculoskeletal: Reports pain in the left ankle, limits on mobility due to pain. - Cardiovascular: Denies known vascular interventions. - Endocrine: Reports history of uncontrolled blood sugar levels; denies routine blood sugar checks. Physical Exam Vital Signs: Last Vital Signs Pulse 93 07/24/24 09:55 Resp 15 07/24/24 09:55 BP 151/75 H 07/24/24 09:55 Pulse Ox 96 07/24/24 09:55 Oxygen Delivery Method Room Air 07/24/24 09:55 BMI result Body Mass Index 43.5 General: awake, alert, oriented. Answers questions appropriately. Fully engaged in examination. Skin: warm, dry, intact HEENT: Normocephalic. Hearing intact. Cardiac: External chest normal in appearance. Respiratory: No cough, audible wheezing or stridor. Abdomen: without gross distension. MS: Bilateral lower extremities from knee down notable for discoloration, significant spider and varicose veins. Cool to the touch bilaterally. Left midfoot arch collapse. Neurological: Oriented to person, place, time and situation. Thought process intact. No gait abnormalities appreciated. Psychiatric: Appropriate mood and affect. Good judgment and insight. Results Reviewed Results Reviewed: 05/16/24 XR/XR ankle LT min 3V FINDINGS: Three views of the left ankle are submitted. Osseous mineralization is normal. A well-corticated osseous densities again noted adjacent to the tip of the medial malleolus which is likely the result of old trauma. There is no acute fracture or dislocation. There is moderate degenerative change of the intertarsal joints. There is a small plantar calcaneal spur. Vascular calcifications. IMPRESSION: Moderate degenerative change of the intertarsal joints. Assessment & Plan Assessment & Plan (1) Peripheral artery disease: Code(s): I73.9 - Peripheral vascular disease, unspecified Category: Medical (2) Chronic pain syndrome: Code(s): G89.4 - Chronic pain syndrome Category: Medical (3) Charcot joint of left foot: Code(s): M14.672 - Charcot's joint, left ankle and foot Category: Medical (4) Left ankle pain: Code(s): M25.572 - Pain in left ankle and joints of left foot Category: Medical Plan A coordinated approach involving vascular and orthopedic consultations was agreed upon, involving a referral to Dr. Chavez for a detailed vascular assessment per patient request. He is familiar with this doctor as she took care of his father. Priority is given to completing CT imaging of the ankle, exploring barriers in approval if any, to better define surgical or interventional requirements. The optimization of current analgesic regimens is central to pain management efforts. I discussed the necessity of consulting a vascular surgeon to assess the progression of venous/arterial insufficiency, including its impact on chronic pain and possible interventions. Hernandez benefits and risks, such as potential dependence, were reviewed with the patient's agreement noted for increasing dosage cautiously based on prescribed hours recommendations, he would need to discuss this with his PCP. The importance of following through with imaging and specialist consultations was emphasized. Anticipatory guidance included monitoring for emergent symptoms such as increased pain or new discoloration alongside routine monitoring. Patient was informed and verbally consented to the use of an ambient scribe for clinic note documentation during this visit. Orders: Referrals Vascular Surgery Referral I73.9 - Peripheral vascular disease, unspecified Patient Instructions: - Follow up with the vascular surgeon, Dr. Chavez, once consulted. - Schedule and complete the CT scan of your left ankle. - Monitor your legs for any changes in color or increased pain. - Continue with prescribed medications; do not exceed dosage without consulting healthcare provider. - Seek urgent care if you notice new or worsening symptoms. - Attend orthopedic appointments for further evaluation and management of your ankle. - Ensure routine monitoring of blood sugar levels to aid in diabetes management. Coding Level of Care Code New Pt Level 4 (47865) Complex EM visit Add On G2211 Diagnoses Peripheral artery disease I73.9 Chronic pain syndrome G89.4 Charcot joint of left foot M14.672 Left ankle pain M25.572
[2024-07-24 09:55] VITALS: BP 151/75; PULSE 93; RESP 15; O2SAT 96; BMI 43.5
== END 2024-07-24 10:43 | disposition home or self-care (01) ==
LOC: HO.PMC 09:52
PROVIDERS: PCP Internal Medicine Geriatric Medicine; Visit Provider Registered Nurse Emergency
DX: I73.9 Peripheral vascular disease, unspecified (principal); G89.4 Chronic pain syndrome; M14.672 Charcot's joint, left ankle and foot; M25.572 Pain in left ankle and joints of left foot
CPT/HCPCS: 99204

== ENCOUNTER → 2024-07-24 09:52 | Outpatient (BNVA) | payer MEDICAID, SELFPAY | PROVIDERS: PCP Internal Medicine Geriatric Medicine; Visit Provider Registered Nurse Emergency | DX: I73.9 Peripheral vascular disease, unspecified (principal); G89.4 Chronic pain syndrome; M14.672 Charcot's joint, left ankle and foot; M25.572 Pain in left ankle and joints of left foot | CPT/HCPCS: 99212 ==